=== PATIENT | female | born 1990 | race Caucasian/White ===

== ENCOUNTER 2016-07-22 17:45 | Emergency (ER) | payer MEDICAID ==
[~2016-07-22] VITALS: Ht 170.2 cm; Wt 64.0 kg
[~2016-07-22 17:45] MED LIST: CETI10TA17; DOXY100C42 PO; FAMO-119 PO; INDO50CA; NABU500T; NORE0.357; NORG1TAB88; PHEN-640 PO; PHEN15CA67; PRD20T PO; RANI150T15 PO; TIZA2TAB3; TOPI100T11; TOPI25TA10
--- OUTSIDE RECORDS SUMMARY | 2016-07-22 17:52 | XMS REPORT | Continuity of Care Document ---
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 Name Role Phone FAHEEM WASHINGTON DO PCP Insurance Providers Payer Name Policy Number Subscriber Name Relationship [facility] Amerigrp [id number] Shayna Winchester 18 Self / Same As Patient Advance Directives Directive Response Recorded Date/Time Advance Directives No 05/03/16 11:01pm Resuscitation Status Full Code 05/03/16 11:01pm Chief Complaint and Reason for Visit Chief Complaint Abdominal/GI Problems Reason for Visit Urinary tract infection Problems Active Problems Medical Problem Onset Date Status Laceration Unknown Acute Urinary tract infection Unknown Acute Urticaria Unknown Acute Medications Current Home Medications Medication Dose Units Route Directions Days/Qty Instructions Start Date Topiramate 100 Mg 60 05/03/16 Norethindrone 0.35 Mg 28 05/03/16 Cetirizine Hcl 10 Mg 30 05/03/16 Nabumetone 500 Mg 60 05/03/16 Norgestimate-Ethinyl Estradiol 1 Each 28 05/03/16 Indomethacin 50 Mg 270 05/03/16 Doxycycline Monohydrate 100 Mg 100 Mg Oral Twice A Day 20 05/03/16 Phenazopyridine Hcl 200 Mg 1 Tab Oral Three Times A Day for Bladder Discomfort 15 05/03/16 Past Home Medications Medication Directions Ordered Status Phentermine Hcl 15 Mg Capsule, 04/13/15 Discontinued Tizanidine Hcl 2 Mg Tablet, 04/13/15 Discontinued Ranitidine Hcl 150 Mg Tablet, 150 Mg Oral 04/13/15 Discontinued Famotidine 20 Mg Tablet, 20 Mg Oral Twice A Day 04/13/15 Discontinued Prednisone 20 Mg Tab, 20 Mg Oral Twice A Day 04/13/15 Discontinued Topiramate 25 Mg Tablet, 09/03/15 Discontinued Social History Social History Problem Response Recorded Date/Time Alcohol Use Occasionally Uses 09/03/2015 8:45pm Recreational Drug Use No 09/03/2015 8:45pm Recent Foreign Travel No 05/03/2016 11:01pm Recent Infectious Disease Exposure No 05/03/2016 11:01pm Hospitalization with Isolation Denies 05/03/2016 11:01pm Smoking Status Current Everyday Smoker 05/03/2016 11:01pm Type Used Electronic/Vapor 05/03/2016 11:01pm Recent Hopitalizations No 05/03/2016 11:01pm Hospitalization with Isolation Denies 05/03/2016 11:01pm Query Response Start Date Stop Date Smoking Status Current Everyday Smoker Hospital Discharge Instructions No hospital discharge instructions. Plan of Care Discharge Date 05/03/16 11:39pm Disposition 01 HOME, SELF-CARE Condition at Discharge Stable Instructions/Education Provided Urinary Tract Infection in Women (ED) Prescriptions See Medication Section Referrals FAHEEM WASHINGTON DO - Primary Care Physician Additional Instructions/Education TYLENOL AND MOTRIN NEEDED FOR PAIN LOTS OF CLEAR LIQUIDS--NO COFFEE, POP OR TEA FOLLOW UP WITH YOUR DR IN 2-3 DAYS IF NO BETTER RETURN TO ER IF WORSE All discharge instructions reviewed with patient and/or family. Voiced understanding. Functional Status No functional status results. Allergies, Adverse Reactions, Alerts Allergen Type Severity Reaction Status Last Updated Penicillins ([id number]) Allergy Unknown Active 04/13/15 Cephalosporins ([id number]) Allergy Unknown Active 05/03/16 nitrofurantoin ([id number]) Allergy Unknown Active 04/13/15 fluconazole ([id number]) Allergy Unknown Active 04/13/15 Levofloxacin Allergy Unknown Active 04/13/15 strawberry ([id number]) Allergy Unknown Active 04/13/15 wheat ([id number]) Allergy Unknown Active 04/13/15 APIRCOTS Allergy Unknown Active 04/13/15 APPLES Allergy Unknown Active 04/13/15 IM IV STEROIDS Allergy Unknown Active 04/13/15 KIAW Allergy Unknown Active 04/13/15 PEACHES Allergy Unknown Active 04/13/15 TOOTHPASTE Allergy Unknown Active 04/13/15 Immunizations No immunization records. Vital Signs Acute Vital Signs Vital Response Date/Time Temperature (Fahrenheit) 98.8 degrees F (97.6 - 99.5) 05/03/2016 11:01pm Temperature (Calculated Celsius) 37.22728 degrees C (36.4 - 37.5) 05/03/2016 11:01pm Pulse Rate (adult) 91 bpm (60 - 90) 05/03/2016 11:01pm Respiratory Rate 18 bpm (12 - 24) 05/03/2016 11:01pm O2 Sat by Pulse Oximetry 97 % (88 - 100) 05/03/2016 11:01pm Blood Pressure 135/86 mm Hg 05/03/2016 11:01pm Blood Pressure Mean 102 mm Hg 05/03/2016 11:01pm Pain Numeric Pain Scale 6 05/03/2016 11:01pm Height (Feet) 5 feet 05/03/2016 11:01pm Height (Inches) 7 inches 05/03/2016 11:01pm Height (Calculated Centimeters) 170.727195 cm 05/03/2016 11:01pm Weight (Pounds) 135 pounds 05/03/2016 11:01pm Weight (Calculated Grams) 53558.818 gm 05/03/2016 11:01pm Weight (Calculated Kilograms) 61.354668 kilograms 05/03/2016 11:01pm Calculated BMI 24.27 05/03/2016 11:01pm Capillary Refill Capillary Refill Less Than 3 Seconds 05/03/2016 11:01pm Results Laboratory Results Test Name Result Units Flags Reference Collection Date/Time Result Date/ Time Comments Urine Color YELLOW 05/03/2016 11:05pm 05/03/2016 11:21pm Urine Clarity CLEAR 05/03/2016 11:05pm 05/03/2016 11:21pm Urine pH 6.5 5-9 05/03/2016 11:05pm 05/03/2016 11:21pm Urine Specific [place] 1.015 * 1.016-1.022 05/03/2016 11:05pm 2015 11:21pm Urine Protein NEGATIVE NEGATIVE 05/03/2016 11:05pm 05/03/2016 11: 21pm Urine Glucose (UA) NEGATIVE NEGATIVE 05/03/2016 11:05pm 05/03/2016 11 :21pm Urine RBC (Auto) NEGATIVE NEGATIVE 05/03/2016 11:05pm 05/03/2016 11: 21pm Urine Ketones NEGATIVE NEGATIVE 05/03/2016 11:05pm 05/03/2016 11: 21pm Urine Nitrite NEGATIVE NEGATIVE 05/03/2016 11:05pm 05/03/2016 11: 21pm Urine Bilirubin NEGATIVE NEGATIVE 05/03/2016 11:05pm 05/03/2016 11: 21pm Urine Urobilinogen NORMAL MG/DL NORMAL 05/03/2016 11:05pm 05/03/2016 11 :21pm Urine Leukocyte Esterase 1+ * NEGATIVE 05/03/2016 11:05pm 05/03/2016 11 :21pm Urine RBC NONE /HPF 05/03/2016 11:05pm 05/03/2016 11:21pm Urine WBC 2-5 /HPF 05/03/2016 11:05pm 05/03/2016 11:21pm Urine Bacteria TRACE /HPF 05/03/2016 11:05pm 05/03/2016 11:21pm Urine Squamous Epithelial Cells 10-25 /HPF * 05/03/2016 11:05pm 2015 11:21pm Urine Crystals NONE /LPF 05/03/2016 11:05pm 05/03/2016 11:21pm Urine Casts NONE /LPF 05/03/2016 11:05pm 05/03/2016 11:21pm Urine Mucus NEGATIVE /LPF 05/03/2016 11:05pm 05/03/2016 11:21pm Urine Culture Indicated NO 05/03/2016 11:05pm 05/03/2016 11:21pm Procedures No known history of procedures. Encounters Encounter Location Arrival/Admit Date Discharge/Depart Date Attending Provider Departed Emergency Room [facility] 05/03/16 10:57pm 11:39pm HAYDEN READ DO Recent Diagnosis
--- NOTE | 2016-07-22 18:18 | ED GU-Female ---
General Chief Complaint: -Female Stated Complaint: 5 WKS PREG/VAG BLEEDING Nursing Triage Note: PT REPORTS LMP 5 WEEKS AND 1 DAY AGO. SHE STATES SHE HAD PINK BLOOD WHEN WIPING EARLIER TODAY. NO ABD CRAMPING Nursing Sepsis Screen: No Definite Risk Source: patient, spouse Exam Limitations: no limitations History of Present Illness Time seen by provider: 18:17 Initial Comments 25-year-old female patient presents to the emergency department with complaints of vaginal spotting (light pink with wiping) earlier today. Reports last menstrual period was 5 weeks and 1 day ago. Has not taken any test to confirm . Denies abdominal cramping, vomiting, dysuria, or hematuria. Has had urinary frequency and nausea for the last 2 weeks. Patient is scheduled to see Dr. Arce for initial appointment next week. Timing/Duration: this afternoon Severity/Quality: mild Location: vaginal Radiation: none Activities at Onset: none Prior Genitourinary Problems: none Sexual [place] History: less than 2 months ago, single partner Modifying Factors: Worsens With Urinating Allergies and Home Medications Allergies Coded Allergies: Cephalosporins (Verified Allergy, Unknown, 05/03/16) Penicillins (Verified Allergy, Unknown, 04/13/15) fluconazole (Verified Allergy, Unknown, 04/13/15) levofloxacin (Verified Allergy, Unknown, 04/13/15) nitrofurantoin (Verified Allergy, Unknown, 04/13/15) strawberry (Verified Allergy, Unknown, 04/13/15) wheat (Verified Allergy, Unknown, 04/13/15) Uncoded Allergies: APIRCOTS (Allergy, Unknown, 04/13/15) APPLES (Allergy, Unknown, 04/13/15) IM IV STEROIDS (Allergy, Unknown, 04/13/15) KIAW (Allergy, Unknown, 04/13/15) PEACHES (Allergy, Unknown, 04/13/15) TOOTHPASTE (Allergy, Unknown, 04/13/15) Home Medications Cetirizine HCl 10 Mg Tablet #30 (Reported) Doxycycline Monohydrate 100 Mg Capsule #20 100 MG PO BID Prescribed by: HAYDEN READ on 05/03/16 8506 Indomethacin 50 Mg Capsule #270 (Reported) Nabumetone 500 Mg Tablet #60 (Reported) Norethindrone 0.35 Mg Tablet #28 (Reported) Norgestimate-Ethinyl Estradiol 1 Each Tablet #28 (Reported) Phenazopyridine HCl 200 Mg Tablet #15 1 TAB PO TID Prescribed by: HAYDEN READ on 05/03/16 2331 Topiramate 100 Mg Tablet #60 (Reported) Constitutional: No chills, No fever, No malaise Respiratory: no symptoms reported Cardiovascular: no symptoms reported Gastrointestinal: No abdominal pain, No constipation, No diarrhea, No nausea, No vomiting Genitourinary: see HPI : Yes Musculoskeletal: no symptoms reported Skin: no symptoms reported Psychiatric/Neurological: No Symptoms Reported All Other Systemes Reviewed Negative Unless Noted: Yes (Negative excepted noted.) Past Pgpinap-Lujnxg-Mzgzig Hx Patient Social History Alcohol Use: Denies Use Recreational Drug Use: No Smoking Status: Former Smoker Type Used: Cigarettes, Electronic/Vapor Recent Foreign Travel: No Contact w/Someone Who Travel: No Recent Infectious Disease Expo: No Recent Hopitalizations: No Physical Abuse Screen: No Sexual Abuse: No Immunizations Up To Date Tetanus Booster (TDap): Unknown Seasonal Allergies Seasonal Allergies: No Surgeries HX Surgeries: Yes Surgeries: Section, Gallbladder, Orthopedic Respiratory Hx Respiratory Disorders: No Cardiovascular Hx Cardiac Disorders: No Neurological Hx Neurological Disorders: Yes Neurological Disorders: Headaches /Migraines 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 System Female 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 Disorders: Denies Genitourinary Hx Genitourinary Disorders: No Gastrointestinal Hx Gastrointestinal Disorders: No Musculoskeletal Hx Musculoskeletal Disorders: Yes Musculoskeletal Disorders: Back Injury, Chronic Back Pain, Fractures Endocrine Hx Endocrine Disorders: No HEENT HX ENT Disorders: Yes (RIGHT ELIAN-HYPERPLASIA OF FACE/HEAD; LASER SURGERY TO TONGUE) Cancer Hx Cancer: No Psychosocial Hx Psychiatric Problems: No Integumentary HX Skin/Integumentary Disorder: No Blood Transfusions Hx Blood Disorders: No Reviewed Nursing Assessment Reviewed/Agree w Nursing PMH: Yes Family Medical History Significant Family History: No Pertinent Family Hx Physical Exam Vital Signs Capillary Refill : Less Than 3 Seconds General Appearance: WD/WN no apparent distress HEENT: PERRL/EOMI pharynx normal Neck: supple normal inspection Cardiovascular: normal peripheral pulses regular rate, rhythm no edema no murmur Respiratory: lungs clear normal breath sounds no respiratory distress Gastrointestinal: normal bowel sounds non tender softNo distended Pelvic: other (deferred by patient. 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 Gestational sac diameter measures about 1.16 cm which corresponds to an estimated gestational age of 5 weeks 6 days. Yolk sac is demonstrated within the gestational sac. No pole however at this time is demonstrated. There is a 4 mm subchorionic hemorrhage posterior to the gestational sac. There is a 1.4 cm probable benign cyst in the right ovary. The left ovary is not well demonstrated. No free fluid is seen. IMPRESSION: There is an intrauterine gestation demonstrated with gestational sac dating of 5 weeks 6 days. Yolk sac is demonstrated; however, no pole is demonstrated. Viability is indeterminate but doubtful. There is also a 4 mm subchorionic hemorrhage present. Short-term follow-up study and correlation with quantitative beta-hCG levels is recommended. Dictated by: Dictated on workstation # [id number] Reviewed: Reviewed by Me (radiology report reviewed by me.) Departure Communication Progress Notes all laboratory and diagnostic findings studies discussed with the patient. Plan for discharge to home. Patient instructed to follow-up with her oven builder as previously scheduled. All return precautions were discussed with the patient as described in the discharge instructions of this report. Patient voices understanding and agrees with the treatment plan. Patient case discussed with Dr. Gonzalez, he agrees with the plan of care. Impression Impression: Primary Impression: Threatened miscarriage in early Disposition: 01 HOME, SELF-CARE Condition: Improved Departure-Patient Inst. Decision time for Depature: 20:09 Referrals: ZEINAB ARCE ADAM S DO (PCP/Family) Primary Care Physician Patient Instructions: Threatened Miscarriage (DC) Add. Discharge Instructions: All discharge instructions reviewed with patient and/or family. Voiced understanding. Tylenol mcru-vax-yhawqns as directed for pain if needed. No intercourse, use of tampons, or strenuous activity until released by Dr. Arce. Follow-up with Dr. Arce as previously scheduled next week for repeat labs and possible need for outpatient repeat ultrasound. Return to the emergency department for worsened pain, fever, vomiting, inability urinate, vaginal bleeding with greater than 2 pads per hour for greater than 2 hours, or any other concerns. Work/School Note: Work Release Form Date Seen in the Emergency Department: Jul 22, 2016 Return to Work: Jul 24, 2016 Other Restrictions Listed Below: no strenuous activity until released by physician. LULU MANCIA Jul 22, 2016 18:17 Urine Leukocyte Esterase NEGATIVE NEGATIVE Urine Mucus NEGATIVE /LPF Urine Nitrite NEGATIVE NEGATIVE Urine Protein NEGATIVE NEGATIVE Urine RBC NONE /HPF Urine RBC (Auto) NEGATIVE NEGATIVE Urine Specific [place] 1.010 L 1.016-1.022 Urine Squamous Epithelial Cells 5-10 /HPF Urine Urobilinogen NORMAL NORMAL MG/DL Urine WBC RARE /HPF Urine pH 7 5-9 White Blood Count 9.4 4.3-11.0 10^3/uL My Orders Orders-LULU MANCIA Cbc With Automated Diff (07/22/16 17:58) Hcg,Quantitative (07/22/16 17:58) Ua Culture If Indicated (07/22/16 17:58) Us Ob Transvaginal [id number] (07/22/16 17:58) Urine Bedside (07/22/16 18:18) Vital Signs/I&O Vital Sign - Last 12Hours 07/22/16 18:02 Temp 98.1 Pulse 74 Resp 16 B/P 124/76 Pulse Ox 98 O2 Delivery Room Air Blood Pressure Mean: 92 Diagnostic Imaging Diagonstic Imaging: Ultrasound Plain Films/CT/US/NM/MRI: pelvis Comments FINDINGS: There is an intrauterine gestational sac demonstrated. Gestational sac diameter measures about 1.16 cm which corresponds to an estimated gestational age of 5 weeks 6 days. Yolk sac is demonstrated within the gestational sac. No pole however at this time is demonstrated. There is a 4 mm subchorionic hemorrhage posterior to the gestational sac. There is a 1.4 cm probable benign cyst in the right ovary. The left ovary is not well demonstrated. No free fluid is seen. IMPRESSION: There is an intrauterine gestation demonstrated with gestational sac dating of 5 weeks 6 days. Yolk sac is demonstrated; however, no pole is demonstrated. Viability is indeterminate but doubtful. There is also a 4 mm subchorionic hemorrhage present. Short-term follow-up study and correlation with quantitative beta-hCG levels is recommended. Dictated by: Dictated on workstation # [id number] Reviewed: Reviewed by Me (radiology report reviewed by me.) Departure Impression Impression: Primary Impression: Threatened miscarriage in early Disposition: 01 HOME, SELF-CARE Condition: Improved Departure-Patient Inst. Decision time for Depature: 20:09 Referrals: ZEINAB ARCE ADAM S DO (PCP/Family) Primary Care Physician Patient Instructions: Threatened Miscarriage (DC) Add. Discharge Instructions: All discharge instructions reviewed with patient and/or family. Voiced understanding. Tylenol [id number] as directed for pain if needed. No intercourse, use of tampons, or strenuous activity until released by Dr. Arce. Follow-up with Dr. Arce as previously scheduled next week for repeat labs and possible need for outpatient repeat ultrasound. Return to the emergency department for worsened pain, fever, vomiting, inability urinate, vaginal bleeding with greater than 2 pads per hour for greater than 2 hours, or any other concerns. Work/School Note: Work Release Form Date Seen in the Emergency Department: Jul 22, 2016 Return to Work: Jul 24, 2016 Other Restrictions Listed Below: no strenuous activity until released by physician. LULU MANCIA Jul 22, 2016 18:17
[2016-07-22 18:33] LABS: BASOPHILS % (AUTO) 0 % (0-10); BILIRUBIN,URINE NEGATIVE (NEGATIVE); EOSINOPHILS # (AUTO) 0.2 10^3/uL (0.0-0.3); EOSINOPHILS % (AUTO) 2 % (0-10); KETONES,URINE NEGATIVE (NEGATIVE); LEUKOCYTE ESTERASE ,URINE NEGATIVE (NEGATIVE); LYMPHOCYTES # (AUTO) 2.4 X 10^3 (1.0-4.0); LYMPHOCYTES % (AUTO) 25 % (12-44); MEAN CORPUSCULAR HEMOGLOBIN 32 PG (25-34); MEAN CORPUSCULAR HGB CONC 34 G/DL (32-36); MEAN CORPUSCULAR VOLUME 94 FL (80-99); MEAN PLATELET VOLUME 10.9 FL (7.4-10.4); MONOCYTES # (AUTO) 0.7 X 10^3 (0.0-1.0); MONOCYTES % (AUTO) 7 % (0-12); NEUTROPHILS # (AUTO) 6.2 X 10^3 (1.8-7.8); NEUTROPHILS % (AUTO) 66 % (42-75); NITRITE,URINE NEGATIVE (NEGATIVE); PH,URINE 7 (5-9); PLATELET COUNT 285 10^3/uL (130-400); PROTEIN,URINE NEGATIVE (NEGATIVE); RED BLOOD COUNT 4.67 10^6/uL (4.35-5.85); RED CELL DISTRIBUTION WIDTH 11.9 % (10.0-14.5); UROBILINOGEN,URINE NORMAL (NORMAL); WHITE BLOOD COUNT 9.4 10^3/uL (4.3-11.0)
[2016-07-22 18:39] LABS: WBC,URINE RARE /HPF
--- NOTE | 2016-07-22 19:49 | Diagnostic Imaging Report ---
INDICATION: Vaginal bleeding. COMPARISON: None. PROCEDURE: Grayscale endovaginal ultrasound is performed with color and duplex Doppler. FINDINGS: There is an intrauterine gestational sac demonstrated. Gestational sac diameter measures about 1.16 cm which corresponds to an estimated gestational age of 5 weeks 6 days. Yolk sac is demonstrated within the gestational sac. No pole however at this time is demonstrated. There is a 4 mm subchorionic hemorrhage posterior to the gestational sac. There is a 1.4 cm probable benign cyst in the right ovary. The left ovary is not well demonstrated. No free fluid is seen. IMPRESSION: There is an intrauterine gestation demonstrated with gestational sac dating of 5 weeks 6 days. Yolk sac is demonstrated; however, no pole is demonstrated. Viability is indeterminate but doubtful. There is also a 4 mm subchorionic hemorrhage present. Short-term follow-up study and correlation with quantitative beta-hCG levels is recommended. Dictated by: Dictated on workstation # [id number]
[2016-07-22 20:27] VITALS: BP 115/74
== END 2016-07-22 20:27 | disposition home or self-care (01) ==
LOC: EDUNIT# 17:45 → ER 17:46
DX: O20.0 Threatened abortion (principal); Z3A.01 Less than 8 weeks gestation of pregnancy
CPT/HCPCS: 36415; 76817; 81000; 84702; 84703; 85025; 99282

== ENCOUNTER → 2016-07-29 | Outpatient (CLI) | payer MEDICAID ==
[~2016-07-29] MED LIST changes: +HYDR-3812 PO
--- OUTSIDE RECORDS SUMMARY | 2016-07-29 13:00 | XMS REPORT | Continuity of Care Document ---
Author Author [facility] Organization [facility] Address Unknown Phone Unavailable Care Team Providers Care Sales Marketing Name Role Phone FAHEEM WASHINGTON DO PCP Insurance Providers Payer Name Policy Number Subscriber Name Relationship [facility] [employer] [id number] Shayna Winchester 18 Self / Same As [...] Type Severity Reaction Status Last Updated Penicillins ([id number]) Allergy Unknown Active 04/13/15 Cephalosporins ([id number]) Allergy Unknown Active 05/03/16 nitrofurantoin ([id number]) Allergy Unknown Active 04/13/15 fluconazole ([id number]) Allergy Unknown Active 04/13/15 Levofloxacin Allergy Unknown Active 04/13/15 strawberry ([id number]) Allergy Unknown Active 04/13/15 wheat (S925273148) Allergy Unknown Active 04/13/15 APIRCOTS Allergy Unknown Active 04/13/15 APPLES Allergy Unknown Active 04/13/15 IM IV STEROIDS Allergy Unknown Active 04/13/15 KIAW Allergy Unknown Active 04/13/15 PEACHES Allergy Unknown Active 04/13/15 TOOTHPASTE Allergy Unknown Active 04/13/15 Immunizations No immunization records. Vital Signs Acute Vital Signs Vital Response Date/Time Temperature (Fahrenheit) 98.8 degrees F (97.6 - 99.5) 05/03/2016 11:01pm Temperature (Calculated Celsius) 37.75684 degrees C (36.4 - 37.5) 05/03/2016 11:01pm [...] 7 inches 05/03/2016 11:01pm Height (Calculated Centimeters) 170.449150 cm 05/03/2016 11:01pm Weight (Pounds) 135 pounds 05/03/2016 11:01pm Weight (Calculated Grams) 14590.818 gm 05/03/2016 11:01pm Weight (Calculated Kilograms) 61.453063 kilograms 05/03/2016 11:01pm Calculated BMI 24.27 05/03/2016 11:01pm Capillary Refill Capillary Refill Less Than 3 Seconds 05/03/2016 11:01pm Results Laboratory Results Test Name Result Units Flags Reference Collection Date/Time Result Date/ Time Comments Urine Color YELLOW 05/03/2016 11:05pm 05/03/2016 11:21pm Urine Clarity CLEAR 05/03/2016 11:05pm 05/03/2016 11:21pm Urine pH 6.5 5-9 05/03/2016 11:05pm 05/03/2016 11:21pm Urine Specific [place] 1.015 * 1.016-1.022 05/03/2016 11:05pm 2015 11:21pm [...] Date Attending Provider Departed Emergency Room [facility] 05/03/16 10:57pm 11:39pm HAYDEN READ DO Recent Diagnosis
--- NOTE | 2016-07-29 13:50 | Diagnostic Imaging Report ---
INDICATION: Vaginal bleeding, . COMPARISON: 07/22/2016. DISCUSSION: Transabdominal sonographic evaluation of the pelvis was performed. Single live intrauterine at 6 weeks 2 days by today's sonographic measurements. EDC by today's ultrasound is 03/22/2017. [place]-rump length measures 0.47 cm. heart rate measures 114 beats per minute, which is considered bradycardic though not uncommonly seen at this early gestational age. No abnormal adnexal mass or fluid. IMPRESSION: 1. Single live intrauterine at 6 weeks 2 days by sonographic measurements. Dictated by: Dictated on workstation # [id number]
== END ==
LOC: RAD 12:57
PROVIDERS: ATTEND Obstetrics & Gynecology
DX: O20.9 Hemorrhage in early pregnancy, unspecified (principal); Z3A.01 Less than 8 weeks gestation of pregnancy
CPT/HCPCS: 76801

== ENCOUNTER → 2016-09-02 | Outpatient (CLI) | payer MEDICAID ==
--- OUTSIDE RECORDS SUMMARY | 2016-09-02 18:51 | XMS REPORT | Continuity of Care Document ---
Author Author [facility] Organization [facility] Address Unknown Phone Unavailable Care Team Providers Care Vp Rheumatology Name Role Phone FAHEEM WASHINGTON DO PCP Insurance Providers Payer Name Policy Number Subscriber Name Relationship [facility] [employer] [id number] Shayna Winchester 18 Self / Same As [...] Type Severity Reaction Status Last Updated Penicillins ([id number]) Allergy Unknown Active 04/13/15 Cephalosporins ([id number]) Allergy Unknown Active 05/03/16 nitrofurantoin (R619609056) Allergy Unknown Active 04/13/15 fluconazole (F661065986) Allergy Unknown Active 04/13/15 Levofloxacin Allergy Unknown Active 04/13/15 strawberry (D452077487) Allergy Unknown Active 04/13/15 wheat (V006458226) Allergy Unknown Active 04/13/15 APIRCOTS Allergy Unknown Active 04/13/15 APPLES Allergy Unknown Active 04/13/15 IM IV STEROIDS Allergy Unknown Active 04/13/15 KIAW Allergy Unknown Active 04/13/15 PEACHES Allergy Unknown Active 04/13/15 TOOTHPASTE Allergy Unknown Active 04/13/15 Immunizations No immunization records. Vital Signs Acute Vital Signs Vital Response Date/Time Temperature (Fahrenheit) 98.8 degrees F (97.6 - 99.5) 05/03/2016 11:01pm Temperature (Calculated Celsius) 37.58580 degrees C (36.4 - 37.5) 05/03/2016 11:01pm [...] 7 inches 05/03/2016 11:01pm Height (Calculated Centimeters) 170.516726 cm 05/03/2016 11:01pm Weight (Pounds) 135 pounds 05/03/2016 11:01pm Weight (Calculated Grams) 25565.818 gm 05/03/2016 11:01pm Weight (Calculated Kilograms) 61.628064 kilograms 05/03/2016 11:01pm Calculated BMI 24.27 05/03/2016 11:01pm Capillary Refill Capillary Refill Less Than 3 Seconds 05/03/2016 11:01pm Results Laboratory Results Test Name Result Units Flags Reference Collection Date/Time Result Date/ Time Comments Urine Color YELLOW 05/03/2016 11:05pm 05/03/2016 11:21pm Urine Clarity CLEAR 05/03/2016 11:05pm 05/03/2016 11:21pm Urine pH 6.5 5-9 05/03/2016 11:05pm 05/03/2016 11:21pm Urine Specific [place] 1.015 * 1.016-1.022 05/03/2016 11:05pm 2015 11:21pm [...] Date Attending Provider Departed Emergency Room [facility] 05/03/16 10:57pm 11:39pm HAYDEN READ DO Recent Diagnosis
[2016-09-02 19:04] LABS: MEAN PLATELET VOLUME 10.1 FL (7.4-10.4); RED BLOOD COUNT 4.24 10^6/uL (4.35-5.85); RED CELL DISTRIBUTION WIDTH 11.7 % (10.0-14.5); WHITE BLOOD COUNT 8.8 10^3/uL (4.3-11.0)
== END ==
LOC: LAB 18:46
PROVIDERS: ATTEND Nurse Practitioner Family
DX: R05 Cough (principal)
CPT/HCPCS: 36415; 85027

== ENCOUNTER 2016-10-21 08:51 | Emergency (ER) | payer MEDICAID ==
[~2016-10-21] VITALS: Ht 170.2 cm; Wt 68.0 kg
[~2016-10-21 08:51] MED LIST changes: -HYDR-3812 PO
--- NOTE | 2016-10-21 09:52 | ED Fall/Injury ---
General Chief Complaint: Hip/Pelvic Problems Stated Complaint: RIGHT HIP/KNEE/ANKLE INJURY Nursing Triage Note: Pt claims she fell inside exam room at the Dr. Arce's office. C/O right pelvic discomfort and right ankle pain. No bruising/swelling noted. Pt is 19 weeks . Source: patient Exam Limitations: no limitations History of Present Illness Time seen by provider: 09:30 Initial Comments Here with report of right hip, ankle and knee pain that she noted this morning but believes is related to a fall that she had yesterday. She was seeing her OB doctor yesterday when she states that she slipped off the steps because she only got half her foot on when she was getting off the table. She reports rolling her ankle medially and falling to the floor. She is not sure exactly what she did and how she hit but thinks she may have landed on her right hip. She was able to walk and had no pain yesterday. This morning she noted the pain to the 3 joint areas. Denies other injury. She is approximately 19 weeks . Occurred: this morning, yesterday Severity: mild Injuries/Pain Location: pelvis, lower extremity Context: slipped Loss of Consciousness: no loss of consciousness Associated Symptoms (Fall): No Muscle Spasms, No Neck Pain, No Shortness of Air , No Trouble Walking Allergies and Home Medications Allergies Coded Allergies: Cephalosporins (Verified Allergy, Unknown, 05/03/16) Penicillins (Verified Allergy, Unknown, 04/13/15) fluconazole (Verified Allergy, Unknown, 04/13/15) levofloxacin (Verified Allergy, Unknown, 04/13/15) nitrofurantoin (Verified Allergy, Unknown, 04/13/15) strawberry (Verified Allergy, Unknown, 04/13/15) wheat (Verified Allergy, Unknown, 04/13/15) Uncoded Allergies: APIRCOTS (Allergy, Unknown, 04/13/15) APPLES (Allergy, Unknown, 04/13/15) IM IV STEROIDS (Allergy, Unknown, 04/13/15) KIAW (Allergy, Unknown, 04/13/15) PEACHES (Allergy, Unknown, 04/13/15) TOOTHPASTE (Allergy, Unknown, 04/13/15) Home Medications Cetirizine HCl 10 Mg Tablet, #30 (Reported) Doxycycline Monohydrate 100 Mg Capsule, 100 MG PO BID, #20 Prescribed by: HAYDEN READ on 05/03/16 2331 Indomethacin 50 Mg Capsule, #270 (Reported) Nabumetone 500 Mg Tablet, #60 (Reported) Norethindrone 0.35 Mg Tablet, #28 (Reported) Norgestimate-Ethinyl Estradiol 1 Each Tablet, #28 (Reported) Phenazopyridine HCl 200 Mg Tablet, 1 TAB PO TID, #15 Prescribed by: HAYDEN READ on 05/03/16 2331 Topiramate 100 Mg Tablet, #60 (Reported) Constitutional: see HPI Respiratory: no symptoms reported Cardiovascular: no symptoms reported Genitourinary: no symptoms reported Musculoskeletal: see HPI, joint pain, muscle pain, No muscle weakness Skin: no symptoms reported Past Peuyjsy-Gvrapd-Pkjtoz Hx Patient Social History Alcohol Use: Denies Use Recreational Drug Use: No Smoking Status: Never a Smoker Type Used: Cigarettes, Electronic/Vapor Recent Foreign Travel: No Contact w/Someone Who Travel: No Recent Infectious Disease Expo: No Recent Hopitalizations: No Immunizations Up To Date Tetanus Booster (TDap): Unknown Seasonal Allergies Seasonal Allergies: No Surgeries HX Surgeries: Yes Surgeries: Section, Gallbladder, Orthopedic Respiratory Hx Respiratory Disorders: No Cardiovascular Hx Cardiac Disorders: No Neurological Hx Neurological Disorders: Yes Neurological Disorders: Headaches /Migraines 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 System : Yes Female 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 Disorders: Denies Genitourinary Hx Genitourinary Disorders: No Gastrointestinal Hx Gastrointestinal Disorders: No Musculoskeletal Hx Musculoskeletal Disorders: Yes Musculoskeletal Disorders: Back Injury, Chronic Back Pain, Fractures Endocrine Hx Endocrine Disorders: No HEENT HX ENT Disorders: Yes (RIGHT ELIAN-HYPERPLASIA OF FACE/HEAD; LASER SURGERY TO TONGUE) Cancer Hx Cancer: No Psychosocial Hx Psychiatric Problems: No Integumentary HX Skin/Integumentary Disorder: No Blood Transfusions Hx Blood Disorders: No Reviewed Nursing Assessment Reviewed/Agree w Nursing PMH: Yes Physical Exam Vital Signs Vital Sign - Last 12Hours 10/21/16 09:15 Temp 99.0 Pulse 70 Resp 16 B/P (MAP) 109/80 Pulse Ox 98 O2 Delivery Room Air Capillary Refill : Less Than 3 Seconds General Appearance: WD/WN, no apparent distress Neck: full range of motion, supple Cardiovascular: regular rate, rhythm, no murmur Respiratory: lungs clear, normal breath sounds Back: normal inspection, no CVA tenderness, no vertebral tenderness Extremities: other (mild tenderness to the posterior lateral aspect of the right hip and right groin. Right knee is overall nontender on range of motion. Negative drawer and negative laxity medial or lateral. Right ankle has mild swelling to the lateral aspect with normal range of motion.) Neurologic/Psychiatric: alert, normal mood/affect Skin: normal color, warm/dry, No ecchymosis Carlos Coma Score Best Eye Response: (4) Open Spontaneously Best Verbal Response: (5) Oriented Best Motor Response: (6) Obeys Commands Progress/Results/Core Measures Results/Orders My Orders Orders - MUNDO BEY MD Ankle, Right, 3 Views (10/21/16 09:35) David Bandage (10/21/16 10:09) Gel Ankle Brace (10/21/16 10:09) Vital Signs/I&O Vital Sign - Last 12Hours 10/21/16 09:15 Temp 99.0 Pulse 70 Resp 16 B/P (MAP) 109/80 Pulse Ox 98 O2 Delivery Room Air Blood Pressure Mean: 90 Progress Note : Progress Note Seen and evaluated. I did discuss the case with her OB doctor, Dr. Arce. We will get x-ray of the right ankle but forego other x-rays at this time. Patient did walk in here without difficulty. She is pain-free until this morning despite the fact that the fall occurred yesterday. Patient did ask about pain medicine. I did discuss this with Dr. Arce. I will prescribe hydrocodone 5 every 4-6 hours # 10 with his permission. 1008: No acute findings on x-ray. David wrap and gel splint applied. Discharged home with return precautions. Patient verbalize understanding instructions and agreement with plan. Diagnostic Imaging Diagonstic Imaging: Xray Plain Films/CT/US/NM/MRI: ankle Comments NAME: ARTHUR WINCHESTER MED REC#: [id number] PT STATUS: REG ER : 1990 PHYSICIAN: MUNDO BEY MD ADMIT DATE: 10/21/16/ER Draft Date of Exam:10/21/16 ANKLE, RIGHT, 3 VIEWS INDICATION: Fall with right ankle pain AP, oblique, and lateral views of the right ankle were obtained. No fracture or acute bony abnormality is seen. Joint spaces are unremarkable. IMPRESSION: Negative right ankle. Dictated on workstation # [id number] Dict: 10/21/16 1004 Trans: 10/21/16 1007 [facility] [id number] Interpreted by: CHEKO MISHRA MD Electronically signed by: Departure Impression Impression: Primary Impression: Right ankle sprain Qualified Codes: S93.401A - Sprain of unspecified ligament of right ankle, initial encounter Additional Impressions: Contusion of right hip Qualified Codes: S70.01XA - Contusion of right hip, initial encounter Right knee pain Qualified Codes: M25.561 - Pain in right knee Disposition: HOME, SELF-CARE Condition: Improved Departure-Patient Inst. Decision time for Depature: 09:56 Referrals: FAHEEM WASHINGTON DO (PCP/Family) Primary Care Physician Patient Instructions: Ankle Sprain (DC), Contusion (DC), Knee Pain (DC) Add. Discharge Instructions: All discharge instructions reviewed with patient and/or family. Voiced understanding. You may take Tylenol 1000 mg or the prescribed pain medicine every 6 hours. Do not take both at the same time and do not exceed 4000 mg of acetaminophen ( Tylenol) and a 24-hour period. Use ice packs to affected area 20 minutes per hour as needed for swelling. You may use David wrap to the affected area of the ankle as needed. Use splint as needed. Follow-up with your Dr. in a few days for recheck. Return for worse pain, fever, vomiting, weakness, breathing problems or other concerns as needed. Scripts Hydrocodone/Acetaminophen (Hydrocodon -Acetaminophen 5-325) 1 Each Tablet 1 EACH PO Q6H Y for PAIN, #10 TAB 0 Refills Prov: MUNDO BEY MD 10/21/16 MUNDO BEY MD Oct 21, 2016 09:52
--- NOTE | 2016-10-21 10:07 | Diagnostic Imaging Report ---
INDICATION: Fall with right ankle pain AP, oblique, and lateral views of the right ankle were obtained. No fracture or acute bony abnormality is seen. Joint spaces are unremarkable. IMPRESSION: Negative right ankle. Dictated by: Dictated on workstation # [id number]
[2016-10-21] MEDS ORDERED: HYDR-3812 PO (10:11)
[2016-10-21 10:18] VITALS: BP 110/80
--- OUTSIDE RECORDS SUMMARY | 2016-11-23 13:39 | XMS REPORT ---
Author Author DAQUAN HALL [facility] Address [address] [place] [address] Care Team Providers Care Gold Stamper Name Role Phone DAQUAN HALL Unavailable PROBLEMS Type Condition ICD9-CM Code FIX93-BI Code Onset Dates Condition Status SNOMED Code Problem Other general counseling and advice for contraceptive management V25.09 Active 587047017 Problem Surveillance of previously prescribed implantable subdermal contraceptive V25.43 Active 079902976 ALLERGIES Unknown Allergies SOCIAL HISTORY No smoking Hx information available PLAN OF CARE VITAL SIGNS MEDICATIONS Unknown Medications RESULTS No Results PROCEDURES No Known procedures IMMUNIZATIONS No Known Immunizations
--- OUTSIDE RECORDS SUMMARY | 2016-11-23 13:39 | XMS REPORT ---
Author Author DAQUAN HALL Organization [employer] Address Unknown Phone Unavailable Care Team Providers Care Refrigeration Supervisor Name Role Phone DAQUAN HALL CP Unavailable Allergies, Adverse Reactions, Alerts Substance Reaction Event Type Macrobid Info Not Available Drug Allergy Levaquin Info Not Available Drug Allergy Penicillins Info Not Available Non Drug Allergy Problems Problem Type Condition Code Onset Dates Condition Status Problem Surveillance of previously prescribed implantable subdermal contraceptive V25.43 Active Assessment Seasonal allergic rhinitis due to pollen J30.1 Active Problem Other general counseling and advice for contraceptive management V25.09 Active Medications Medication Code System Code Instructions Start Date End Date Status Dosage Vitamin D [facility] [address]-07 not defined Topamax [facility] [address]-69 not defined Sudafed [facility] [address]-47 30 MG Orally every 6 hrs 1 tablet as needed Excedrin PM [facility] [place] [address]-81 not defined Fluticasone Propionate [facility] [address]-79 50 MCG/ACT Nasally Once a day Mar 17, 2016 1 spray in each nostril Tizanidine HCl [facility] [address]-39 not defined Cetirizine HCl [facility] [place] [address]-70 10 mg Orally Once a day Mar 17, 2016 1 tablet Procedures Procedure Coding System Code Date Office Visit, Est Pt., Level 3 CPT-4 39833 Mar 17, 2016 Vital Signs Date/Time: Mar 17, 2016 Cardiac Monitoring Heart Rate 66 bpm Weight 142 lbs Height 66 in BMI 22.92 Index Blood Pressure Diastolic 82 mmHg Blood Pressure Systolic 112 mmHg Results No Known Results Summary Purpose [employer] Submission
--- OUTSIDE RECORDS SUMMARY | 2016-11-23 13:39 | XMS REPORT | Continuity of Care Document ---
Author Author [facility] Organization [facility] Address Unknown Phone Unavailable Allergies Active Description Code Type Severity Reaction Onset Reported/Identified Relationship to Patient Clinical Status Yes APIRCOTS APIRCOTS Unknown N/A 04/13/2015 Yes APPLES APPLES Unknown N/A 04/13/2015 Yes doxycycline [id number] Drug Allergy Unknown N/A 04/13/2015 Yes fluconazole [id number] Drug Allergy Unknown N/A 04/13/2015 Yes IM IV STEROIDS IM IV STEROIDS Unknown N/A 04/13/2015 Yes KIAW KIAW Unknown N/A 04/13/2015 Yes levofloxacin [id number] Drug Allergy Unknown N/A 04/13/2015 Yes nitrofurantoin [id number] Drug Allergy Unknown N/A 04/13/2015 Yes PEACHES PEACHES Unknown N/A 04/13/2015 Yes Penicillins [id number] Drug Allergy Unknown N/A 04/13/2015 Yes strawberry [id number] Drug Allergy Unknown N/A 04/13/2015 Yes TOOTHPASTE TOOTHPASTE Unknown N/A 04/13/2015 Yes wheat [id number] Drug Allergy Unknown N/A 04/13/2015 Yes Cephalosporins [id number] Drug Allergy Unknown N/A 05/03/2016 Medications Problems Date Dx Coded Attending Type Code Diagnosis Diagnosed By 04/13/2015 LULU KUO Ot 708.9 URTICARIA NOS 09/03/2015 DAVIS RHODES, KAELA Wadsworth Ot S61.012A LACERATION W/O FB OF LEFT THUMB W/ O MARY 09/03/2015 DAVIS RHODES, KAELA Wadsworth Ot W26.0XXA CONTACT WITH KNIFE, INITIAL ENCOUNTER 09/03/2015 DAVIS RHODES, KAELA Wadsworth Ot Y92.010 KITCHEN OF SINGLE-FAMILY (PRIVATE) HOUSE 09/03/2015 DAVIS RHODES, KAEAL Wadsworth Ot Y99.8 OTHER EXTERNAL CAUSE STATUS 10/09/2015 FAHEEM WASHINGTON DO Ot R10.11 11/20/2015 YOUSIF, JOCELIN L RESOURCE CONSERVATION MANAGER Ot R10.11 RIGHT UPPER QUADRANT PAIN 11/21/2015 YOUSIF, JOCELIN L RESOURCE CONSERVATION MANAGER Ot R10.11 RIGHT UPPER QUADRANT PAIN 11/28/2015 YOUSIF, JOCELIN L RESOURCE CONSERVATION MANAGER Ot R10.11 RIGHT UPPER QUADRANT PAIN 12/10/2015 YOUSIF, JOCELIN L RESOURCE CONSERVATION MANAGER Ot R10.11 RIGHT UPPER QUADRANT PAIN 05/03/2016 JACEK STRICKLAND HAYDEN K Ot F17.210 NICOTINE DEPENDENCE, CIGARETTES, UNCOMPL 05/03/2016 JACEK STRICKLAND, HAYDEN K Ot N39.0 URINARY TRACT INFECTION, SITE NOT SPECIF 05/03/2016 JACEK STRICKLAND HAYDEN K Ot R35.0 FREQUENCY OF MICTURITION 05/03/2016 JACEK STRICKLAND HAYDEN K Ot Z79.899 OTHER RETIREMENT (CURRENT) DRUG THERAPY 07/22/2016 LULU UKO Ot O20.0 THREATENED 07/22/2016 LULU KUO Ot Z3A.01 LESS THAN 8 WEEKS GESTATION OF 07/22/2016 FELIX STRICKLAND FAHEEM S Ot R10.11 RIGHT UPPER QUADRANT PAIN 07/22/2016 YOUSIF, JOCELIN L RESOURCE CONSERVATION MANAGER Ot R10.11 RIGHT UPPER QUADRANT PAIN 07/22/2016 YOUSIF, JOCELIN L RESOURCE CONSERVATION MANAGER Ot R10.11 RIGHT UPPER QUADRANT PAIN 07/24/2016 LULU KUO Ot O20.0 THREATENED 07/24/2016 LULU KUO Ot Z3A.01 LESS THAN 8 WEEKS GESTATION OF 07/30/2016 ALEXYS CORONA MD Ot O20.9 HEMORRHAGE IN EARLY , UNSPECIFI 07/30/2016 ALEXYS CORONA MD Ot Z3A.01 LESS THAN 8 WEEKS GESTATION OF 08/08/2016 ALEXYS CORONA MD Ot O20.9 HEMORRHAGE IN EARLY , UNSPECIFI 08/08/2016 ALEXYS CORONA MD Ot Z3A.01 LESS THAN 8 WEEKS GESTATION OF 09/12/2016 JAKI MOREJON [employer] SYSTEMS ENGINEER Ot R05 COUGH 10/21/2016 MUNDO BEY MD Ot M25.561 PAIN IN RIGHT KNEE 10/21/2016 MUNDO BEY MD Ot S70.01XA CONTUSION OF RIGHT HIP, INITIAL ENCOUNTE 10/21/2016 MUNDO BEY MD Ot S79.911A UNSPECIFIED INJURY OF RIGHT HIP, INITIAL 10/21/2016 MUNDO BEY MD Ot S93.401A SPRAIN OF UNSPECIFIED LIGAMENT OF RIGHT 10/21/2016 MUNDO BEY MD Ot W10.9XXA FALL (ON) (FROM) UNSPECIFIED STAIRS AND 10/21/2016 MUNDO BEY MD Ot Y92.[address] 10/21/2016 MUNDO BEY MD Ot Y99.8 OTHER EXTERNAL CAUSE STATUS 10/21/2016 MUNDO BEY MD Ot Z3A.19 19 WEEKS GESTATION OF 10/27/2016 FENECH DO ZEINAB S Ot Z34.82 ENCOUNTER FOR SUPRVSN OF NORMAL PREGNANC 10/27/2016 FENECH DO ZEINAB S Ot Z3A.19 19 WEEKS GESTATION OF 11/04/2016 DANNIELLEECH ZEINAB STRICKLAND S Ot Z34.82 ENCOUNTER FOR SUPRVSN OF NORMAL PREGNANC 11/04/2016 FENECH DO ZEINAB S Ot Z3A.19 19 WEEKS GESTATION OF Procedures Results Test Result Range Complete urinalysis with reflex to culture - 05/03/16 23:05 Urine color determination YELLOW NRG Urine clarity determination CLEAR NRG Urine pH measurement by test strip 6.5 5 -9 Specific gravity of urine by test strip 1.015 1.016-1.022 Urine protein assay by test strip, semi-quantitative NEGATIVE NEGATIVE Urine glucose detection by automated test strip NEGATIVE NEGATIVE Erythrocytes detection in urine sediment by light microscopy NEGATIVE NEGATIVE Urine ketones detection by automated test strip NEGATIVE NEGATIVE Urine nitrite detection by test strip NEGATIVE NEGATIVE Urine total bilirubin detection by test strip NEGATIVE NEGATIVE Urine urobilinogen measurement by automated test strip (mass/volume) NORMAL NORMAL Urine leukocyte esterase detection by dipstick 1+ NEGATIVE Automated urine sediment erythrocyte count by microscopy (number/high power field) NONE NRG Automated urine sediment leukocyte count by microscopy (number/high power field ) [HPF] NRG Bacteria detection in urine sediment by light microscopy TRACE NRG Squamous epithelial cells detection in urine sediment by light microscopy 10-25 NRG Crystals detection in urine sediment by light microscopy NONE NRG Casts detection in urine sediment by light microscopy NONE NRG Mucus detection in urine sediment by light microscopy NEGATIVE NRG Complete urinalysis with reflex to culture NO NRG Bacterial urine culture - 05/03/16 23:05 URINE CULTURE RESULTS <10,000/ML NRG Complete blood count (CBC) with automated white blood cell (WBC) differential - 07/22/16 18:20 Blood leukocytes automated count (number/volume) 9.4 10*3/ uL 4.3-11.0 Blood erythrocytes automated count (number/volume) 4.67 10*6 /uL 4.35-5.85 Venous blood hemoglobin measurement (mass/volume) 14.8 g/dL 11.5-16.0 Blood hematocrit (volume fraction) 44 % 35-52 Automated erythrocyte mean corpuscular volume 94 [foz_us] 80-99 Automated erythrocyte mean corpuscular hemoglobin (mass per erythrocyte) 32 pg 25-34 Automated erythrocyte mean corpuscular hemoglobin concentration measurement ( mass/volume) 34 g/dL 32-36 Automated erythrocyte distribution width ratio 11.9 % 10.0-14.5 Automated blood platelet count (count/volume) 285 10*3/uL 130-400 Automated blood platelet mean volume measurement 10.9 [foz_ us] 7.4-10.4 Automated blood neutrophils/100 leukocytes 66 % 42-75 Automated blood lymphocytes/100 leukocytes 25 % 12-44 Blood monocytes/100 leukocytes 7 % 0-12 Automated blood eosinophils/100 leukocytes 2 % 0-10 Automated blood basophils/100 leukocytes 0 % 0-10 Blood neutrophils automated count (number/volume) 6.2 10*3 1.8-7.8 Blood lymphocytes automated count (number/volume) 2.4 10*3 1.0-4.0 Blood monocytes automated count (number/volume) 0.7 10*3 0.0-1.0 Automated eosinophil count 0.2 10*3/uL 0.0-0.3 Automated blood basophil count (count/volume) 0.0 10*3/uL 0.0-0.1 Complete urinalysis with reflex to culture - 07/22/16 18:20 Urine color determination YELLOW NRG Urine clarity determination SLIGHTLY CLOUDY NRG Urine pH measurement by test strip 7 5- 9 Specific gravity of urine by test strip 1.010 1.016-1.022 Urine protein assay by test strip, semi-quantitative NEGATIVE NEGATIVE Urine glucose detection by automated test strip NEGATIVE NEGATIVE Erythrocytes detection in urine sediment by light microscopy NEGATIVE NEGATIVE Urine ketones detection by automated test strip NEGATIVE NEGATIVE Urine nitrite detection by test strip NEGATIVE NEGATIVE Urine total bilirubin detection by test strip NEGATIVE NEGATIVE Urine urobilinogen measurement by automated test strip (mass/volume) NORMAL NORMAL Urine leukocyte esterase detection by dipstick NEGATIVE NEGATIVE Automated urine sediment erythrocyte count by microscopy (number/high power field) NONE NRG Automated urine sediment leukocyte count by microscopy (number/high power field ) RARE NRG Bacteria detection in urine sediment by light microscopy NONE NRG Squamous epithelial cells detection in urine sediment by light microscopy 5-10 NRG Crystals detection in urine sediment by light microscopy NONE NRG Casts detection in urine sediment by light microscopy NONE NRG Mucus detection in urine sediment by light microscopy NEGATIVE NRG Complete urinalysis with reflex to culture NO NRG Serum or plasma choriogonadotropin measurement (units/volume) - 07/22/16 18:20 Serum or plasma choriogonadotropin measurement (units/volume) 24033 m[iU]/mL <5 Automated blood complete blood count (hemogram) panel - 09/02/16 18:58 Blood leukocytes automated count (number/volume) 8.8 10*3/ uL 4.3-11.0 Blood erythrocytes automated count (number/volume) 4.24 10*6 /uL 4.35-5.85 Venous blood hemoglobin measurement (mass/volume) 13.4 g/dL 11.5-16.0 Blood hematocrit (volume fraction) 39 % 35-52 Automated erythrocyte mean corpuscular volume 91 [foz_us] 80-99 Automated erythrocyte mean corpuscular hemoglobin (mass per erythrocyte) 32 pg 25-34 Automated erythrocyte mean corpuscular hemoglobin concentration measurement ( mass/volume) 35 g/dL 32-36 Automated erythrocyte distribution width ratio 11.7 % 10.0-14.5 Automated blood platelet count (count/volume) 243 10*3/uL 130-400 Automated blood platelet mean volume measurement 10.1 [foz_ us] 7.4-10.4 Encounters ACCT No. Visit Date/Time Discharge Status Pt. Type Provider Facility Loc./Unit Complaint [id number] 10/21/2016 08:54:00 2016 10:17:00 DIS Emergency SOTERO RHODES, MUNDO Birch [facility] ER RIGHT HIP/KNEE/ANKLE INJURY [id number] 07/22/2016 17:46:00 2016 20:27:00 DIS Emergency LULU KUO [facility] ER 5 WKS PREG/VAG BLEEDING [id number] 05/03/2016 22:57:00 2015 23:39:00 DIS Emergency HAYDEN READ DO [facility] ER STOMACH PAIN [id number] 09/03/2015 20:17:00 2015 21:05:00 DIS Emergency DAVIS RHODES, KAELA Wadsworth [facility] ER FINGER LAC [id number] 04/13/2015 11:17:00 2014 12:13:00 DIS Emergency LULU KUO [facility] ER POSS ALLERGIC REACTION [id number] 10/23/2016 11:48:00 ACT Outpatient ZEINAB VARGAS DO [facility] RAD SURVEY [id number] 09/02/2016 18:46:00 ACT Outpatient JAKI MOREJON APRN [facility] LAB COUGH [id number] 07/29/2016 12:57:00 ACT Outpatient CJ RHODES, ALEXYS Khoury [facility] RAD BLEEDING IN EARLY [id number] 11/26/2015 09:35:00 ACT Outpatient JOCELIN DODD RESOURCE CONSERVATION MANAGER [facility] CARD RUQ PAIN GB SONO NEG [id number] 11/19/2015 12:23:00 ACT Outpatient JOCELIN DODD RESOURCE CONSERVATION MANAGER [facility] CARD RUQ PAIN GB SONO NEG [id number] 09/28/2015 07:49:00 ACT Outpatient FAHEEM WASHINGTON DO S [facility] RAD ABDOMINAL PAIN RIGHT UPPER QUAD
--- OUTSIDE RECORDS SUMMARY | 2016-11-23 13:39 | XMS REPORT ---
Author Author CALLY KING Organization [employer] Address Unknown Phone Unavailable Care Team Providers Care [employer]oples[employer]ancials Consultant Name Role Phone CALLY KING CP Unavailable Allergies No Known Allergies Problems Problem Type Condition ICD-9 Code Onset Dates Condition Status Problem Surveillance of previously prescribed implantable subdermal contraceptive V25.43 Active Assessment Dental examination V72.2 Active Problem Other general counseling and advice for contraceptive management V25.09 Active Medications No Known Medications Procedures Procedure Coding System Code Date INTRAORL-PERIAPICAL 1 FILM 05070 CPT-4 D0220 Mar 01, 2015 INTRAORL-PERIAPICAL EA ADD FILM CPT-4 D0230 Mar 01, 2015 COMP ORAL EVALUATION - NEW/EST PT CPT-4 D0150 Mar 01, 2015 PROPHYLAXIS - ADULT CPT-4 D1110 Mar 01, 2015 BITEWINGS - FOUR FILMS CPT-4 D0274 Mar 01, 2015 Results No Known Results Summary Purpose eClinicalWorks Submission
== END 2016-10-21 10:17 | disposition home or self-care (01) ==
LOC: EDUNIT# 08:51 → ER 08:54
DX: S93.401A Sprain of unspecified ligament of right ankle, initial encounter (principal); S70.01XA Contusion of right hip, initial encounter; M25.561 Pain in right knee; Z3A.19 19 weeks gestation of pregnancy; Y92.531 Health care provider office as the place of occurrence of the external cause; W10.9XXA Fall (on) (from) unspecified stairs and steps, initial encounter; Y99.8 Other external cause status
CPT/HCPCS: 73610; 99283

== ENCOUNTER → 2016-10-23 | Outpatient (CLI) | payer MEDICAID ==
[~2016-10-23] MED LIST changes: +HYDR-3812 PO
--- NOTE | 2016-10-23 16:57 | Diagnostic Imaging Report ---
INDICATION: survey. OB sonography performed in a routine fashion with transabdominal views. Comparison made with 07/29/2016. FINDINGS: A single live intrauterine fetus is seen measuring 19 weeks 2 days by composite measurements, this demonstrates normal interval growth compared to the prior study. The fetus is in variable presentation. Placenta is posterior and grade 2 with no evidence of previa. heart rate is 134 beats per minute. Cervical length is 4.7 cm. survey shows mild prominence of renal pelves on both sides which measure about 4 mm. Spine was not well-seen. Remaining structures appear unremarkable. IMPRESSION: Single live intrauterine fetus measuring 19 weeks 2 days in size with normal interval growth since the prior study. There is mild prominence of the renal pelvis on both sides, consider followup as clinically warranted. spine was not well seen due to position, consider followup of this finding as well. Dictated by: Dictated on workstation # [id number]
== END ==
LOC: RAD 11:48
PROVIDERS: ATTEND Obstetrics & Gynecology
DX: Z34.82 Encounter for supervision of other normal pregnancy, second trimester (principal); Z3A.19 19 weeks gestation of pregnancy
CPT/HCPCS: 76805; 76817

== ENCOUNTER 2016-11-25 21:14 | Outpatient (CLI) | payer MEDICAID | END 2016-11-26 05:40 | disposition home or self-care (01) | LOC: SLEEP 21:14 | PROVIDERS: ATTEND Psychiatry & Neurology Neurology | DX: G47.33 Obstructive sleep apnea (adult) (pediatric) (principal) | CPT/HCPCS: 95810 ==

== ENCOUNTER 2016-12-06 19:46 | Outpatient (CLI) | payer MEDICAID ==
[~2016-12-06] VITALS: Ht 170.2 cm; Wt 73.3 kg
[2016-12-06 20:05] VITALS: BP 134/70
[2016-12-06] MEDS ORDERED: PNV11TAB5 PO (20:44)
[2016-12-06 20:45] VITALS: BP 120/68
--- NOTE | 2016-12-08 11:50 | Physician Query-Final Dx ---
LOIDA VIRGEN 12/08/16 1150: Clinic Account Progress/Dx Physician Query: Please give diagnosis Date of Service December 06, 2016 at 19:46 WHITLEY POE MD 12/09/16 0606: Clinic Account Progress/Dx DIAGNOSIS: Diagnosis False labor LOIDA VIRGEN December 08, 2016 11:50 WHITLEY POE MD December 09, 2016 06:06
== END 2016-12-06 21:05 ==
LOC: WSo 19:46 → LDRP 19:46 → WSo 21:05
PROVIDERS: ATTEND Obstetrics & Gynecology
DX: O47.02 False labor before 37 completed weeks of gestation, second trimester (principal); Z3A.25 25 weeks gestation of pregnancy
CPT/HCPCS: 99213

== ENCOUNTER → 2016-12-29 | Outpatient (CLI) | payer MEDICAID ==
[~2016-12-29] MED LIST changes: +PNV11TAB5 PO
--- NOTE | 2016-12-29 18:07 | Diagnostic Imaging Report ---
EXAM: US FOLLOW UP EA FETUS [id number] INDICATION: F/U RENALS COMPARISON: Obstetric ultrasound 10/23/2016. FINDINGS: Limited ultrasound of a single live intrauterine demonstrates a persistent prominence of the right renal pelvis measuring up to 4 mm. The left kidney appears normal on today's exam. The fetus is in cephalic presentation. JOSE 12.3. There is a posterior placenta. heart rate 135 beats per minute. Anatomic measurements for dates were not acquired. Images of the spine demonstrate normal morphology. IMPRESSION: Persistent prominence of the right renal collecting system measuring 4 mm. The left kidney is normal on today's exam. Dictated by: Dictated on workstation # [id number]
== END ==
LOC: RAD 16:44
PROVIDERS: ATTEND Obstetrics & Gynecology
DX: Z34.82 Encounter for supervision of other normal pregnancy, second trimester (principal)
CPT/HCPCS: 76816

== ENCOUNTER 2016-12-31 23:30 | Emergency (ER) | payer MEDICAID ==
[~2016-12-31] VITALS: Ht 170.2 cm; Wt 73.0 kg
[2017-01-01] MEDS ORDERED: predniSONE 20 MG TAB ONE (00:05)
[2017-01-01] MEDS ORDERED: FAMOTIDINE 20 MG (PEPCID) TABLET ONE (00:05)
[2017-01-01] MEDS ORDERED: FAMO-119 PO (00:06)
[2017-01-01] MEDS ORDERED: PRD20T PO (00:06)
--- NOTE | 2017-01-01 00:07 | ED Integumentary General ---
General Chief Complaint: Skin/Wound Problems Stated Complaint: RASH,29 WKS PREG Nursing Triage Note: PATIENT C/O RASH ON RIGHT ARM. PATIENT STATES THAT IT BEGAN ON THURSDAY AND HAS SINCE SPREAD AND THE BURNING HAS INCREASED. Source: patient, RN notes reviewed Exam Limitations: no limitations History of Present Illness Time seen by provider: 00:04 Initial Comments Patient presents c/ c/o rash RUE that started on Thursday and has slowly worsened. Describes it as burning. Doesn't remember anything similar to it. No known new exposures. Is 29 weeks . Did see her OB on 12/31 and he had no idea what the rash was. Apparently no recommendations. Been taking 1/2 doses of Benadryl which is only making her sleepy. Been on Pepcid for GI related symptoms but hasn't noted it to be helping. No known fever. Really no other complaints. Timing/Duration: getting worse, other (since Thursday) Severity: moderate Location: extremities (primarily RUE) Possible Cause: no cause identified Modifying Factors: improves with other (nothing) Associated Symptoms: change in skin texture, rash Allergies and Home Medications Allergies Coded Allergies: Cephalosporins (Verified Allergy, Unknown, 05/03/16) Penicillins (Verified Allergy, Unknown, 04/13/15) fluconazole (Verified Allergy, Unknown, 04/13/15) levofloxacin (Verified Allergy, Unknown, 04/13/15) nitrofurantoin (Verified Allergy, Unknown, 04/13/15) strawberry (Verified Allergy, Unknown, 04/13/15) wheat (Verified Allergy, Unknown, 04/13/15) Uncoded Allergies: APIRCOTS (Allergy, Unknown, 04/13/15) APPLES (Allergy, Unknown, 04/13/15) IM IV STEROIDS (Allergy, Unknown, 04/13/15) KIAW (Allergy, Unknown, 04/13/15) PEACHES (Allergy, Unknown, 04/13/15) TOOTHPASTE (Allergy, Unknown, 04/13/15) Home Medications Famotidine 20 Mg Tablet, 20 MG PO BID, #10 Ref 0 Prescribed by: ARVIN TOMPKINS on 01/01/17 0006 Fsf708/FA/Omega3/Dha/Fish Oil 1 Each Tab.chew, 1 EACH PO DAILY, (Reported) Prednisone 20 Mg Tab, 20 MG PO BID, #8 Ref 0 Prescribed by: ARVIN TOMPKINS on 01/01/17 0006 Constitutional: see HPI : Yes Expected Date of Delivery: Mar 16, 2017 Skin: see HPI, rash All Other Systems Reviewed Negative Unless Noted: Yes Past Ttbhbfv-Lezcvw-Meeafx Hx Patient Social History Alcohol Use: Denies Use Recreational Drug Use: No Smoking Status: Former Smoker Type Used: Electronic/Vapor Recent Foreign Travel: No Contact w/Someone Who Travel: No Recent Infectious Disease Expo: No Recent Hopitalizations: No Immunizations Up To Date Tetanus Booster (TDap): Unknown Seasonal Allergies Seasonal Allergies: No Surgeries HX Surgeries: Yes Surgeries: Section, Gallbladder, Orthopedic Respiratory Hx Respiratory Disorders: No Cardiovascular Hx Cardiac Disorders: No Neurological Hx Neurological Disorders: Yes Neurological Disorders: Headaches /Migraines 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 System : Yes Female 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 Disorders: Denies Genitourinary Hx Genitourinary Disorders: No Gastrointestinal Hx Gastrointestinal Disorders: No Musculoskeletal Hx Musculoskeletal Disorders: Yes Musculoskeletal Disorders: Arthritis, Back Injury, Chronic Back Pain, Fractures Endocrine Hx Endocrine Disorders: No HEENT HX ENT Disorders: Yes (RIGHT ELIAN-HYPERPLASIA OF FACE/HEAD; LASER SURGERY TO TONGUE) Cancer Hx Cancer: No Psychosocial Hx Psychiatric Problems: No Behavioral Health Disorders: Anxiety Integumentary HX Skin/Integumentary Disorder: No Blood Transfusions Hx Blood Disorders: No Physical Exam Vital Signs Vital Sign - Last 12Hours 12/31/16 23:41 Temp 97.1 Pulse 84 Resp 18 B/P (MAP) 118/77 Pulse Ox 98 O2 Delivery Room Air Capillary Refill : Less Than 3 Seconds General Appearance: WD/WN, no apparent distress Cardiovascular: regular rate, rhythm Respiratory: no respiratory distress Extremities: other (has apparent urticarial rash on RUE) Neurologic/Psychiatric: no motor/sensory deficits, alert, normal mood/affect, oriented x 3 Skin: warm/dry, rash Skin Problem Location: upper extremities (RUE) Skin Problem Character: blanching, erythema, urticarial Progress/Results/Core Measures Results/Orders My Orders Orders - ARVIN TOMPKINS DO Famotidine Tablet (Pepcid Tablet) (01/01/17 00:15) Prednisone Tablet (Deltasone Tablet) (01/01/17 00:15) Famotidine Tablet (Pepcid Tablet) (01/01/17 00:05) Prednisone Tablet (Deltasone Tablet) (01/01/17 00:05) Vital Signs/I&O Vital Sign - Last 12Hours 12/31/16 01/01/17 23:41 00:18 Temp 97.1 Pulse 84 84 Resp 18 18 B/P (MAP) 118/77 Pulse Ox 98 98 O2 Delivery Room Air Room Air Blood Pressure Mean: 91 Progress Note : Progress Note Briefly discussed case c/ Dr. Goldne (OB) and she had no problems c/ placing patient on a short course of prednisone as well as using Zyrtec rather that Benadryl. Also going to continue her on Pepcid 20 mg BID x 5 days as well. Departure Impression Impression: Primary Impression: Urticaria Disposition: HOME, SELF-CARE Condition: Stable Departure-Patient Inst. Decision time for Depature: 00:04 Referrals: FAHEEM WASHINGTON DO (PCP/Family) Primary Care Physician Patient Instructions: Marlin (DC) Add. Discharge Instructions: All discharge instructions reviewed with patient and/or family. Voiced understanding. WILL NEED TO STOP AND PHYSICAL THERAPY TEACHER SOME ZYRTEC. RECOMMEND 1 TAB EVERY 12 HOURS NEEDED FOR RASH/ITCHING. Scripts Prednisone (Prednisone) 20 Mg Tab 20 MG PO BID, #8 TAB 0 Refills Prov: ARVIN TOMPKINS DO 01/01/17 Famotidine (Pepcid) 20 Mg Tablet 20 MG PO BID, #10 TAB 0 Refills Prov: ARVIN TOMPKINS DO 01/01/17 ARVIN TOMPKINS DO Jan 01, 2017 00:07
[2017-01-01] MEDS ORDERED: predniSONE 20 MG TAB PO ONE (00:15)
[2017-01-01] MEDS ORDERED: FAMOTIDINE 20 MG (PEPCID) TABLET PO ONE (00:15)
[2017-01-01 00:18] VITALS: BP 118/77
== END 2017-01-01 00:18 | disposition home or self-care (01) ==
LOC: EDUNIT# 23:30 → ER 23:34
DX: O99.713 Diseases of the skin and subcutaneous tissue complicating pregnancy, third trimester (principal); L50.9 Urticaria, unspecified; Z3A.29 29 weeks gestation of pregnancy; Z87.891 Personal history of nicotine dependence
CPT/HCPCS: 99282

== ENCOUNTER 2017-01-20 22:44 | Outpatient (CLI) | payer MEDICAID ==
[~2017-01-20] VITALS: Ht 170.2 cm; Wt 75.5 kg
[2017-01-20 23:10] LABS: BILIRUBIN,URINE NEGATIVE (NEGATIVE); KETONES,URINE NEGATIVE (NEGATIVE); LEUKOCYTE ESTERASE ,URINE NEGATIVE (NEGATIVE); NITRITE,URINE NEGATIVE (NEGATIVE); PH,URINE 7 (5-9); PROTEIN,URINE NEGATIVE (NEGATIVE); UROBILINOGEN,URINE NORMAL (NORMAL)
[2017-01-20 23:26] VITALS: BP 109/69
--- NOTE | 2017-01-21 08:36 | Physician Query-Final Dx ---
LOIDA VIRGEN 01/21/17 0836: Clinic Account Progress/Dx Physician Query: Please give diagnosis Date of Service Jan 20, 2017 at 22:44 ZEINAB VARGAS DO 01/22/17 0650: Clinic Account Progress/Dx DIAGNOSIS: Diagnosis 34 week IUP Physiologic vaginal discharge LOIDA VIRGEN Jan 21, 2017 08:36 ZEINAB VARGAS DO Jan 22, 2017 06:50
== END 2017-01-20 23:35 | disposition home or self-care (01) ==
LOC: WSo 22:44 → LDRP 22:45 → WSo 23:35
PROVIDERS: ATTEND Obstetrics & Gynecology
DX: O26.893 Other specified pregnancy related conditions, third trimester (principal); O99.89 Other specified diseases and conditions complicating pregnancy, childbirth and the puerperium; N89.8 Other specified noninflammatory disorders of vagina; Z3A.34 34 weeks gestation of pregnancy
CPT/HCPCS: 81000; 99212

== ENCOUNTER 2017-03-03 19:26 | Outpatient (CLI) | payer MEDICAID ==
[~2017-03-03] VITALS: Ht 167.6 cm; Wt 78.5 kg
[2017-03-03 19:45] VITALS: BP 111/75
[2017-03-03] MEDS ORDERED: ZOLP5TAB PO ×2 (20:13)
[2017-03-03 20:18] VITALS: BP 118/63
[2017-03-03] MEDS ORDERED: PRD10T PO (21:10)
[2017-03-03] MEDS ORDERED: CYCL10TA9 PO (21:10)
--- NOTE | 2017-03-04 08:11 | Physician Query-Final Dx ---
LOIDA VIRGEN 03/04/17 0811: Clinic Account Progress/Dx Physician Query: Please give diagnosis Date of Service Mar 03, 2017 at 19:26 ZEINAB VARGAS DO 03/05/17 0715: Clinic Account Progress/Dx DIAGNOSIS: Diagnosis 38 week IUP Previous decreased movement LOIDA VIRGEN Mar 04, 2017 08:11 ZEINAB VARGAS DO Mar 05, 2017 07:15
[2017-03-04] MEDS ORDERED: OMEP20TA7 PO (15:00)
[2017-03-04] MEDS ORDERED: RANI150T15 PO (15:00)
== END 2017-03-03 20:25 | disposition home or self-care (01) ==
LOC: LDRP 19:26 → WSo 19:26
PROVIDERS: ATTEND Obstetrics & Gynecology
DX: O36.8130 Decreased fetal movements, third trimester, not applicable or unspecified (principal); O34.219 Maternal care for unspecified type scar from previous cesarean delivery; Z3A.39 39 weeks gestation of pregnancy
CPT/HCPCS: 99212

== ENCOUNTER 2017-03-03 20:30 | Emergency (ER) | payer MEDICAID ==
[~2017-03-03] VITALS: Ht 170.2 cm; Wt 78.5 kg
[~2017-03-03 20:30] MED LIST changes: +ZOLP5TAB PO
[2017-03-03] MEDS ORDERED: CYCL10TA9 PO (21:10)
[2017-03-03] MEDS ORDERED: PRD10T PO (21:10)
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
[2017-03-03] MEDS ORDERED: methylPREDNISolone 125 MG (Solu-MEDROL) VIAL IM ONE (21:15)
[2017-03-03] MEDS ORDERED: ORPHENADRINE 60 MG/2 ML (NORFLEX) AMP IM ONE (21:15)
[2017-03-03] MEDS ORDERED: diphenhydrAMINE 25 MG TAB (BENADRYL) PO ONE (21:15)
[2017-03-03 21:39] VITALS: BP 0/0
[2017-03-04] MEDS ORDERED: OMEP20TA7 PO (15:00)
[2017-03-04] MEDS ORDERED: RANI150T15 PO (15:00)
== END 2017-03-03 21:39 | disposition home or self-care (01) ==
LOC: EDUNIT# 20:30 → ER 20:31
DX: O99.89 Other specified diseases and conditions complicating pregnancy, childbirth and the puerperium (principal); M54.12 Radiculopathy, cervical region; O99.343 Other mental disorders complicating pregnancy, third trimester; F41.9 Anxiety disorder, unspecified; M19.90 Unspecified osteoarthritis, unspecified site; O99.353 Diseases of the nervous system complicating pregnancy, third trimester; G43.909 Migraine, unspecified, not intractable, without status migrainosus; O99.333 Smoking (tobacco) complicating pregnancy, third trimester; F17.210 Nicotine dependence, cigarettes, uncomplicated; Z3A.38 38 weeks gestation of pregnancy; Z87.59 Personal history of other complications of pregnancy, childbirth and the puerperium; Z87.81 Personal history of (healed) traumatic fracture
CPT/HCPCS: 96372; 99284

== ENCOUNTER 2017-03-04 14:41 | Outpatient (CLI) | payer MEDICAID ==
[~2017-03-04] VITALS: Ht 170.2 cm; Wt 78.5 kg
[~2017-03-04 14:41] MED LIST changes: +CYCL10TA9 PO; +PRD10T PO
[2017-03-04] MEDS ORDERED: OMEP20TA7 PO (15:00)
[2017-03-04] MEDS ORDERED: RANI150T15 PO (15:00)
--- NOTE | 2017-03-05 11:37 | Physician Query-Final Dx ---
YUMIKO EID 03/05/17 11:37am: Clinic Account Progress/Dx Physician Query: Please give diagnosis Date of Service Mar 04, 2017 at 14:41 ZEINAB VARGAS DO 03/12/17 11:56am: Clinic Account Progress/Dx DIAGNOSIS: Diagnosis 38 week IUP Uterine contractions Pelvic pressure YUMIKO EID Mar 05, 2017 11:37 am ZEINAB VARGAS DO Mar 12, 2017 11:56 am
== END 2017-03-04 15:40 | disposition home or self-care (01) ==
LOC: LDRP 14:41 → WSo 14:41
PROVIDERS: ATTEND Obstetrics & Gynecology
DX: O47.1 False labor at or after 37 completed weeks of gestation (principal); Z3A.38 38 weeks gestation of pregnancy
CPT/HCPCS: 99212

== ENCOUNTER 2017-03-05 09:52 | Outpatient (CLI) | payer MEDICAID ==
[~2017-03-05] VITALS: Ht 170.2 cm; Wt 78.5 kg
[~2017-03-05 09:52] MED LIST changes: +OMEP20TA7 PO
[2017-03-05 10:21] VITALS: BP 116/77
== END 2017-03-05 10:20 | disposition home or self-care (01) ==
LOC: PREOP 09:52
PROVIDERS: ATTEND Obstetrics & Gynecology
DX: Z01.818 Encounter for other preprocedural examination (principal); O34.219 Maternal care for unspecified type scar from previous cesarean delivery; Z3A.00 Weeks of gestation of pregnancy not specified; Z80.41 Family history of malignant neoplasm of ovary
CPT/HCPCS: 87081

== ENCOUNTER 2017-03-12 06:48 | Inpatient (IN) | payer MEDICAID ==
[2017-03-12] VITALS (7 sets, daily range): BP systolic 103–126; BP diastolic 59–86
[~2017-03-12] VITALS: Ht 170.2 cm; Wt 78.5 kg
[2017-03-12] MEDS ORDERED: LACTATED RINGERS 1,000 ML IV PRN ×2 (07:14)
[2017-03-12] MEDS ORDERED: CITRIC ACID/SOB CIT (BICITRA) 30 ML UDC PO ONE (07:15)
[2017-03-12] MEDS ORDERED: FAMOTIDINE 20MG/2ML IV (PEPCID) IV ONE (07:15)
[2017-03-12] MEDS ORDERED: CATHETER FLUSH 10 ML SYR IV PRN (07:15)
[2017-03-12] MEDS ORDERED: METOCLOPRAMIDE INJ 10 MG/2 ML (REGLAN) IV ONE (07:15)
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
[2017-03-12] MEDS ORDERED: ceFAZolin 2 GM/50 ML NS 50 ML ONE (08:02)
[2017-03-12 08:09] LABS: BASOPHILS # (AUTO) 0.1 10^3/uL (0.0-0.1); BASOPHILS % (AUTO) 1 % (0-10); EOSINOPHILS # (AUTO) 0.1 10^3/uL (0.0-0.3); EOSINOPHILS % (AUTO) 1 % (0-10); LYMPHOCYTES # (AUTO) 2.3 X 10^3 (1.0-4.0); LYMPHOCYTES % (AUTO) 21 % (12-44); MEAN CORPUSCULAR HEMOGLOBIN 28 PG (25-34); MEAN CORPUSCULAR HGB CONC 33 G/DL (32-36); MEAN CORPUSCULAR VOLUME 87 FL (80-99); MEAN PLATELET VOLUME 11.1 FL (7.4-10.4); MONOCYTES % (AUTO) 9 % (0-12); NEUTROPHILS # (AUTO) 7.6 X 10^3 (1.8-7.8); NEUTROPHILS % (AUTO) 69 % (42-75); PLATELET COUNT 256 10^3/uL (130-400); RED BLOOD COUNT 4.06 10^6/uL (4.35-5.85); RED CELL DISTRIBUTION WIDTH 12.4 % (10.0-14.5)
[2017-03-12] MEDS ORDERED: ceFAZolin 2 GM/50 ML NS 50 ML IV ONE (08:15)
[2017-03-12] MEDS ORDERED: morphine INJ 10 MG/ML 1ML (SYR OR VIAL) ONE (09:06)
[2017-03-12] MEDS ORDERED: OXYTOCIN/NORMAL SALINE 1,000 ML IV ONE (09:06)
[2017-03-12] MEDS ORDERED: fentaNYL INJECTION 100 MCG/2 ML AMP ONE (09:06)
[2017-03-12] MEDS ORDERED: morphine PF (DURAMORPH) 10 MG/10 ML AMP ONE (09:19)
[2017-03-12] MEDS ORDERED: PHENYLEPHRINE 100 MCG/ML 10 ML (ANESTHESIA) SYR ONE (10:01)
[2017-03-12] MEDS ORDERED: ONDANSETRON 4 MG/2 ML (SDV) Z0FRAN IV PRN (10:45)
[2017-03-12] MEDS ORDERED: NALOXONE 0.4 MG/ML 1 ML (NARCAN) VIAL IV PRN (10:45)
[2017-03-12] MEDS ORDERED: fentaNYL INJECTION 100 MCG/2 ML AMP INJ ONE (10:45)
[2017-03-12] MEDS ORDERED: morphine PF (DURAMORPH) 10 MG/10 ML AMP INJ ONE (10:45)
[2017-03-12] MEDS ORDERED: OXYTOCIN/NORMAL SALINE 500 ML IV SCH (11:17)
--- NOTE | 2017-03-12 11:20 | Progress Note-Post Operative ---
Post-Operative Progess Note Surgeon (s)/Perinatal Coordinator (s) Surgeon ZEINAB VARGAS DO Perinatal Coordinator: Dilcia Quezada Pre-Operative Diagnosis Previous Post-Operative Diagnosis same Procedure & Operative Findings Date of Procedure 03/12/17 Procedure Performed/Findings RLTCS and RRS OPERATIVE REPORT IN DETAIL: Once in the operating room, spinal anesthesia was found to be adequate. She was placed in the supine position with a leftward tilt, prepped and draped in normal sterile fashion. A timeout is performed and anesthesia is tested. I then proceed with making a Pfannenstiel skin incision to the previously existing scar using a knife and carried down to the underlying fascia using Bovie cautery. The fascial incision is extended laterally using Bovie cautery. The superior aspect of the fascial incision was then grasped with Raul clamps, tented upward and dissected off the underlying rectus muscles. During this dissection there is severe scarring of the rectus muscle to the fascia, it is difficult to separate the two layers as the muscle layer is nearly obliterated. Inferior aspect of the fascial incision was then grasped with Raul clamps, tented upward and dissected off the underlying rectus muscles as best as I can. The rectus muscles were then dissected down the midline using De La Torre scissors, which exposed the peritoneum and allows me to enter bluntly. I then extend the peritoneal incision using blunt traction, placing Mikey ring retractor in the peritoneal incision which offers excellent lateral sidewall retraction. I then identified the lower uterine segment which was found to be thinned out and make an incision into the vesicouterine peritoneum and bluntly dissected a bladder flap off of the lower uterine segment. I then proceed with my myotomy until membranes are visualized. At which point, I extend the uterine incision laterally and superiorly using bandage scissors. I then performed amniotomy using an Allis clamp. Clear fluid was noted. The infant is found in vertex presentation. With gentle fundal pressure, the 's head is elevated and delivered through the incision and then the nares and oropharynx are then bulb suctioned. The anterior and posterior shoulders are delivered. The is then brought out into the operative field where the cord was doubly clamped and cut. Infant was handed off to the awaiting nurses in attendance. Cord blood was collected and 3-vessel cord with intact placenta is delivered spontaneously thereafter. IV Pitocin is initiated to facilitate uterine contraction. Uterine fundus became firmer with bimanual massage. The uterus was then exteriorized and cleared of all endometrial clots and debris. I then closed the uterine incision using 0 Vicryl suture in running locking fashion. A 2nd layer of imbricating 0 Monocryl was placed. Excellent hemostasis was noted after doing so. I then perform a bilateral salpingectomy by doing the following: a window in the mesosalpinx is created using bovie cautery. I then cauterize down the mesosalpinx to the isthmic tube insertion and ligate the tube using 2-0 vicryl. In similar fashion I ligate the distal ampullary portion's connection with the ovary using 2-0 vicryl suture. No bleeding was noted from any of this dissection. I then placed the uterus back within the pelvis and copiously irrigated the pelvis using normal saline. There was no active bleeding noted from any of my dissection planes. I placed Interceed antiadhesive over my lower transverse incision and proceeded with closing the peritoneum using 3-0 Vicryl in running fashion. The rectus muscle was reapproximated using 3-0 Vicryl sutures in interrupted fashion. The fascia was reapproximated using 0 Vicryl fashion. The subcutaneous tissues reapproximated using 3-0 plain in an interrupted fashion and the skin was reapproximated using 4-0 Monocryl in a running subcuticular. Dermabond was applied to the incision. A sterile dressing is adhesive white tape. The patient tolerated the procedure well and was sent to the recovery area in stable condition. Lap and sponge counts correct at the end of the procedure. Instrument counts were correct as well. Two grams of Ancef was given preoperatively for infection prophylaxis. Anesthesia Type spinal Estimated Blood Loss Estimated blood loss (mL): 600 Specimens/Packing Specimens Removed tubes, placenta ZEINAB VARGAS Mar 12, 2017 11:20
[2017-03-12] MEDS ORDERED: TETANUS,DIPTH,PERTUSS P/F (BOOSTRIX) 0.5 ML VIAL IM SCH (11:30)
[2017-03-12] MEDS ORDERED: HYDROmorphone (DILAUDID) 2 MG/ML VIAL IVP PRN (11:30)
[2017-03-12] MEDS ORDERED: ONDANSETRON 4 MG/2 ML (SDV) Z0FRAN IVP PRN (11:30)
[2017-03-12] MEDS ORDERED: KETOROLAC 30 MG/ML VIAL IVP SCH (11:30)
[2017-03-12] MEDS ORDERED: MEASLES,MUMPS,RUBELLA 1 EA INJ SC SCH (11:30)
[2017-03-12] MEDS ORDERED: D5 LR IV SOLUTION 1,000 ML IV ONE (13:00)
[2017-03-12] MEDS ORDERED: CATHETER FLUSH 10 ML SYR IV SCH (14:00)
[2017-03-12] MEDS: DOCUSATE SODIUM 100 MG (COLACE) CAP PO SCH (21:28)
[2017-03-12] MEDS ORDERED: FAMOTIDINE 20 MG (PEPCID) TABLET PO PRN (21:45)
[2017-03-13] MEDS ORDERED: IBUPROFEN 800 MG (MOTRIN) TAB PO ONE (00:08)
[2017-03-13] MEDS ORDERED: IBUPROFEN 600 MG (MOTRIN) TAB PO ONE ×2 (00:20→05:45)
[2017-03-13 00:27] VITALS: BP 110/71
[2017-03-13] MEDS: IBUPROFEN 600 MG (MOTRIN) TAB PO SCH ×4 (00:31→20:01)
[2017-03-13] MEDS: HYDROcodone/APAP 5 MG/325 MG (LORTAB) TAB PO PRN ×2 (02:29→10:24)
[2017-03-13 06:00] VITALS: BP 103/69
[2017-03-13 06:39] LABS: BASOPHILS % (AUTO) 0 % (0-10); EOSINOPHILS # (AUTO) 0.2 10^3/uL (0.0-0.3); EOSINOPHILS % (AUTO) 2 % (0-10); LYMPHOCYTES # (AUTO) 2.4 X 10^3 (1.0-4.0); LYMPHOCYTES % (AUTO) 16 % (12-44); MEAN CORPUSCULAR HEMOGLOBIN 28 PG (25-34); MEAN CORPUSCULAR HGB CONC 33 G/DL (32-36); MEAN CORPUSCULAR VOLUME 87 FL (80-99); MEAN PLATELET VOLUME 11.2 FL (7.4-10.4); MONOCYTES # (AUTO) 1.2 X 10^3 (0.0-1.0); MONOCYTES % (AUTO) 8 % (0-12); NEUTROPHILS # (AUTO) 10.9 X 10^3 (1.8-7.8); NEUTROPHILS % (AUTO) 74 % (42-75); PLATELET COUNT 248 10^3/uL (130-400); RED BLOOD COUNT 3.95 10^6/uL (4.35-5.85); RED CELL DISTRIBUTION WIDTH 12.4 % (10.0-14.5); WHITE BLOOD COUNT 14.8 10^3/uL (4.3-11.0)
[2017-03-13 10:15] VITALS: BP 100/64
[2017-03-13] MEDS: DOCUSATE SODIUM 100 MG (COLACE) CAP PO SCH ×2 (10:25→20:01)
--- NOTE | 2017-03-13 11:30 | Progress Note-Standard ---
Standard Progress Note Progress Notes/Assess & Plan Date Seen by Provider: Mar 13, 2017 Time Seen by Provider: 11:00 Progress/Assessment & Plan Patient doing well POD 1 RLTCS with RRS. Reports decent pain control but is asking for something stronger. Denies heavy lochia. She is . Vital Sign - Last 24 Hours 03/12/17 03/12/17 03/12/17 03/12/17 11:30 12:25 17:39 21:30 Temp 97.1 97.3 97.1 Pulse 87 75 77 Resp 16 20 20 B/P (MAP) 126/86 112/79 103/68 Pulse Ox 99 99 98 O2 Delivery Room Air Room Air Room Air Room Air 03/13/17 03/13/17 03/13/17 00:27 06:00 10:15 Temp 97.1 96.7 96.5 Pulse 81 72 83 Resp 20 18 18 B/P (MAP) 110/71 103/69 100/64 Pulse Ox 97 97 99 O2 Delivery Room Air Room Air Room Air Incision: c/d/i Laboratory Tests Test 03/13/17 05:50 Range/Units White Blood Count 14.8 H 4.3-11.0 10^3/uL Red Blood Count 3.95 L 4.35-5.85 10^6/uL Hemoglobin 11.2 L 11.5-16.0 G/DL Hematocrit 34 L 35-52 % Mean Corpuscular Volume 87 80-99 FL Mean Corpuscular Hemoglobin 28 25-34 PG Mean Corpuscular Hemoglobin Concent 33 32-36 G/DL Red Cell Distribution Width 12.4 10.0-14.5 % Platelet Count 248 130-400 10^3/uL Mean Platelet Volume 11.2 H 7.4-10.4 FL Neutrophils (%) (Auto) 74 42-75 % Lymphocytes (%) (Auto) 16 12-44 % Monocytes (%) (Auto) 8 0-12 % Eosinophils (%) (Auto) 2 0-10 % Basophils (%) (Auto) 0 0-10 % Neutrophils # (Auto) 10.9 H 1.8-7.8 X 10^3 Lymphocytes # (Auto) 2.4 1.0-4.0 X 10^3 Monocytes # (Auto) 1.2 H 0.0-1.0 X 10^3 Eosinophils # (Auto) 0.2 0.0-0.3 10^3/uL Basophils # (Auto) 0.0 0.0-0.1 10^3/uL Diagnosis: POD 1 RLTCS + RRS P: Continue routine PO/ PP care Anticipate dc tomorrow Encourage ambulation and IS use ZEINAB VARGAS DO Mar 13, 2017 11:30 am
[2017-03-13] MEDS ORDERED: IBUP-1773 PO (11:32)
[2017-03-13] MEDS ORDERED: DOCU100C37 PO (11:32)
[2017-03-13] MEDS ORDERED: HYDR-3816 PO (11:32)
--- NOTE | 2017-03-13 11:32 | Discharge Inst-Women's Service ---
Discharge Inst-Women's Serv Depart Medication/Instructions New, Converted or Re-Newed RX: RX on Chart Consults/Follow Up Additional Follow Up: Yes Orders/Referrals Dr. Vargas in 7-10 days and in 6 weeks Activity Activity: Activity as Tolerated Driving Instructions: No Driving for 1 Week NO SMOKING: NO SMOKING Nothing Inside Vagina: No Douching, No Nowthen, No Tampons Diet Discharge Diet: No Restrictions Symptoms to Report to : Bleeding Excessive, Pain Increased, Fever Over 101 Degrees F, Vaginal Bleeding Increase, Questions/Concerns For Any Problems or Questions: Contact Your Physician Skin/Wound Care Infection Signs and Symptoms: Increased Redness, Foul Odor of Wound, Increased Drainage, Skin Itchy or Has a Rash, Increased Swelling, Temperature Above 101 F Operative Area Clean and Dry: Keep Incision Clean/Dry Stitches/Julia/Dermabond: Dermabond, Care of Stitches Bathing Instructions: Shower (x 2 weeks) ZEINAB VARGAS DO Mar 13, 2017 11:32 am
--- NOTE | 2017-03-13 14:58 | Anesthesia-Regional Post-Op ---
Regional Patient Condition Mental Status: Alert, Oriented x3 Circulation: Same as Pre-Op Headache: Absent Sensation: Full Recovery Motor Block: Absent Post Op Complications Complications None Follow Up Care/Instructions Patient Instructions None needed. Anesthesia/Patient Condition Patient is doing well, no complaints, stable vital signs, no apparent adverse anesthesia problems. SATURNINO PARADA DO Mar 13, 2017 14:58
[2017-03-13] MEDS: HYDROcodone/APAP 7.5 MG/325 MG (LORTAB, LORCET PLUS) TABLET PO PRN ×2 (15:32→22:53)
[2017-03-13 15:33] VITALS: BP 115/71
[2017-03-13 20:00] VITALS: BP 108/75
[2017-03-13] MEDS ORDERED: CHLORASEPTIC LOZENGE MM PRN (20:45)
[2017-03-14 02:45] VITALS: BP 112/82
[2017-03-14] MEDS: IBUPROFEN 600 MG (MOTRIN) TAB PO SCH ×2 (02:50→09:38)
[2017-03-14] MEDS: HYDROcodone/APAP 7.5 MG/325 MG (LORTAB, LORCET PLUS) TABLET PO PRN ×2 (05:32→12:14)
--- NOTE | 2017-03-14 08:55 | Progress Note-Standard ---
Standard Progress Note Progress Notes/Assess & Plan Date Seen by Provider: Mar 14, 2017 Time Seen by Provider: 08:54 Progress/Assessment & Plan this patient is without complaint. She is ambulating, voiding, tolerating fairly well, has good pain control, patient requesting discharge home. Vital Signs Date Time Temp Pulse Resp B/P (MAP) Pulse Ox O2 Delivery O2 Flow Rate FiO2 03/14/17 02:45 97.8 83 18 112/82 99 03/13/17 20:00 98.0 69 18 108/75 100 03/13/17 15:33 97.2 81 18 115/71 98 Room Air 03/13/17 10:15 96.5 83 18 100/64 99 Room Air vital signs are stable. Patient is afebrile. The abdomen is benign. Extreme show clubbing cyanosis. There is no Homans sign. There is some pretibial pitting edema that is normal. Assessment and plan postoperative day number 2 status post repeat doing well. Plan is for discharge home with follow-up in clinic Final Diagnosis repeat delivery WHITLEY POE MD Mar 14, 2017 8:55 am
[2017-03-14 09:38] VITALS: BP 107/69
[2017-03-14] MEDS: DOCUSATE SODIUM 100 MG (COLACE) CAP PO SCH (09:38)
== END 2017-03-14 13:01 | disposition home or self-care (01) | DRG 766 ==
LOC: LDRP 06:48 → WS 10:28
PROVIDERS: ADMIT Obstetrics & Gynecology; ATTEND Obstetrics & Gynecology
PROC: 0UT70ZZ Resection of Bilateral Fallopian Tubes, Open Approach (ICD-10-PCS; 2017-03-12)
PROC: 3E0P05Z Introduction of Adhesion Barrier into Female 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, Open Approach (ICD-10-PCS; 2017-03-12)
PROC: 10D00Z1 Extraction of Products of Conception, Low, Open Approach (ICD-10-PCS; principal; 2017-03-12 09:23)
DX: O34.211 Maternal care for low transverse scar from previous cesarean delivery (principal); Z80.41 Family history of malignant neoplasm of ovary; Z3A.39 39 weeks gestation of pregnancy; Z37.0 Single live birth
CPT/HCPCS: 36415; 85025; 86850; 86900; 86901; 88302; 94664

== ENCOUNTER 2017-03-14 19:30 | Emergency (ER) | payer MEDICAID ==
[~2017-03-14] VITALS: Ht 157.5 cm; Wt 72.6 kg
[~2017-03-14 19:30] MED LIST changes: +DOCU100C37 PO; +HYDR-3816 PO; +IBUP-1773 PO
--- NOTE | 2017-03-14 19:48 | ED General ---
General Chief Complaint: General Problems/Pain Stated Complaint: PAIN AT INCISION FROM Source of Information: Patient Exam Limitations: No Limitations History of Present Illness Time Seen by Provider: 19:46 Initial Comments To ER with suprapubic pain at the site of her incision. She had this done 2 days ago and was discharged about 1 p.m. today. She took the baby home and by the time she was able to get the prescriptions filled the pharmacies were closed. Timing/Duration: 1-2 Days Severity: Moderate Allergies and Home Medications Allergies Coded Allergies: Cephalosporins (Verified Allergy, Unknown, 05/03/16) Penicillins (Verified Allergy, Unknown, 04/13/15) apple (Unverified Allergy, Unknown, 03/13/17) FROM UNCODED ALLERGIES apricot (Unverified Allergy, Unknown, 03/13/17) FROM UNCODED ALLERGIES fluconazole (Verified Allergy, Unknown, 04/13/15) levofloxacin (Verified Allergy, Unknown, 04/13/15) nitrofurantoin (Verified Allergy, Unknown, 04/13/15) peach (Unverified Allergy, Unknown, 03/13/17) FROM UNCODED ALLERGIES strawberry (Verified Allergy, Unknown, 04/13/15) Uncoded Allergies: IM IV STEROIDS (Allergy, Unknown, 04/13/15) KIAW (Allergy, Unknown, 04/13/15) TOOTHPASTE (Allergy, Unknown, 04/13/15) Home Medications Cyclobenzaprine HCl 10 Mg Tablet, 10 MG PO Q8H, #15 Prescribed by: HAYDEN READ on 03/03/170 Docusate Sodium 100 Mg Capsule, 100 MG PO BID, #40 Prescribed by: ZEINAB VARGAS on 03/13/17 1132 Hydrocodone/Acetaminophen 1 Each Tablet, 1-2 EA PO Q4H PRN for PAIN-MODERATE, # 50 Prescribed by: ZEINAB VARGAS on 03/13/17 1132 Ibuprofen 600 Mg Tablet, 600 MG PO Q6H, #80 Prescribed by: ZEINAB VARGAS on 03/13/17 1132 Omeprazole 20 Mg Tablet.dr, 20 MG PO BID, (Reported) Ihi029/FA/Omega3/Dha/Fish Oil 1 Each Tab.chew, 1 EACH PO DAILY, (Reported) Prednisone 10 Mg Tab, 40 MG PO DAILY, #12 Prescribed by: HAYDEN READ on 03/03/172109 Ranitidine HCl 150 Mg Tablet, 150 MG PO DAILY, (Reported) Zolpidem Tartrate 5 Mg Tablet, 5 MG PO HS for 30 Days Prescribed by: CYRUS COPE on 03/03/172012 Constitutional: see HPI EENTM: see HPI Respiratory: no symptoms reported Cardiovascular: no symptoms reported Genitourinary: no symptoms reported Musculoskeletal: no symptoms reported Skin: no symptoms reported Past Amlyrhq-Xtdqwj-Uavlju Hx Patient Social History Type Used: Electronic/Vapor Recent Foreign Travel: No Contact w/Someone Who Travel: No Recent Hopitalizations: No Immunizations Up To Date Tetanus Booster (TDap): Unknown Seasonal Allergies Seasonal Allergies: Yes Surgeries History of Surgeries: Yes (HILLAYR PLACED AND REMOVED R FEMUR, several facial bx's) Surgeries: Section, Gallbladder, Orthopedic Respiratory History of Respiratory Disorde: No Cardiovascular History of Cardiac Disorders: No Neurological History of Neurological Disord: Yes Neurological Disorders: Headaches /Migraines 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 System Female 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 Disorders: Denies Genitourinary History of Genitourinary Disor: No Gastrointestinal History of Gastrointestinal Di: No Musculoskeletal History of Musculoskeletal Dis: Yes (pinched nerve in back) Musculoskeletal Disorders: Arthritis, Back Injury, Chronic Back Pain, Fractures Endocrine History of Endocrine Disorders: No HEENT History of HEENT Disorders: No Cancer History of Cancer: No Psychosocial History of Psychiatric Problem: Yes Behavioral Health Disorders: Anxiety Integumentary History of Skin or Integumenta: No Blood Transfusions History of Blood Disorders: No Adverse Reaction to a Blood Tr: No Family Medical History Family Medial History: Alcoholism 19 FATHER Diabetes mellitus 19 FATHER 19 MOTHER Drug abuse 19 FATHER Hypertension 19 FATHER 19 MOTHER Kidney disease 19 FATHER Physical Exam Vital Signs Capillary Refill : General Appearance: No Apparent Distress, WD/WN Eyes: Bilateral Eye Normal Inspection, Bilateral Eye PERRL, Bilateral Eye EOMI HEENT: PERRL/EOMI, TMs Normal, Other (she also reports ulcerations large on her tongue for the past several years that get worse when she is under stress and the tongue appearance is that of geographic tongue. She states her little sore at this time. I'll give her some viscous lidocaine.) Neck: Full Range of Motion, Normal Inspection Respiratory: No Accessory Muscle Use, No Respiratory Distress Extremity: Normal Capillary Refill, Normal Inspection Neurologic/Psychiatric: Alert, Oriented x3, No Motor/Sensory Deficits Skin: Normal Color, Warm/Dry, Other ( incision site is clean dry and intact without erythema or drainage.) Progress/Results/Core Measures Results/Orders My Orders Orders - SATINDER RODRIGUEZ APRN Rx-Oxycodone/Apap 5-325 Mg (Rx-Percocet (03/14/17 19:45) Lidocaine 2% Viscous 15 Ml (Xylocaine Vi (03/14/17 19:45) Departure Impression Impression: Primary Impression: Geographic tongue Additional Impression: Postoperative pain Disposition: 01 HOME, SELF-CARE Condition: Stable Departure-Patient Inst. Decision time for Depature: 19:48 Referrals: FAHEEM WASHINGTON DO (PCP/Family) Primary Care Physician Patient Instructions: Postoperative Pain (DC) Add. Discharge Instructions: 1. Follow-up with her doctors as scheduled 2. Return to ER for any concerns 3. All discharge instructions reviewed with patient and/or family. Voiced understanding. SATINDER RODRIGUEZ APRN Mar 14, 2017 19:48
[2017-03-14] MEDS: LIDOCAINE 2% VISCOUS 15 ML UDC PO ONE (19:55)
[2017-03-14] MEDS: RX-OXYCODONE/APAP 5-325 MG #4 TAB PK PO PRN (19:55)
[2017-03-14] MEDS: oxyCODONE/APAP 5/325MG (PERCOCET 5) TABLET PO ONE (19:55)
[2017-03-14 19:58] VITALS: BP 151/96
== END 2017-03-14 19:58 | disposition home or self-care (01) ==
LOC: EDUNIT# 19:30 → ER 19:32
DX: O99.63 Diseases of the digestive system complicating the puerperium (principal); K14.1 Geographic tongue; O99.89 Other specified diseases and conditions complicating pregnancy, childbirth and the puerperium; G89.18 Other acute postprocedural pain
CPT/HCPCS: 99283

== ENCOUNTER 2017-03-30 16:14 | Emergency (ER) | payer MEDICAID ==
[~2017-03-30] VITALS: Ht 157.5 cm; Wt 72.6 kg
--- NOTE | 2017-03-30 17:00 | ED GU-Female ---
General Chief Complaint: -Female Stated Complaint: POST /VAGINAL BLEEDING Nursing Triage Note: PT REPORTS HEAVY VAGINAL BLEEDING SINCE ABOUT 1500 THIS AFTERNOON. SHE IS APPROX 3 WEEKS POST C SECTION. SHE REPORTS HAVING INTERCOURSE SEVERAL TIMES IN THE LAST FEW WEEKS. PT DENIES ANY PAIN AT THIS TIME. Nursing Sepsis Screen: No Definite Risk Source: patient Exam Limitations: no limitations History of Present Illness Time seen by provider: 16:30 Initial Comments Here with report of vaginal bleeding. She is approximately 3 weeks post C- section for her second delivery. She reports sexual activity several days twice in one day and then 2 days ago sexual activity again. She reports using a condom for those episodes. No pain after the first episodes but did have cramping after sexual activity 2 days ago. That has stopped. She noted vaginal bleeding of the significant amount today and states that blood was just pouring out of her vagina into the toilet. She reports that she is still bleeding currently. She called her doctor who sent her to the ER for evaluation. Timing/Duration: this afternoon Severity/Quality: moderate Location: vaginal Radiation: suprapubic Activities at Onset: sexual activity Sexual [place] History: less than 2 months ago, single partner Modifying Factors: Improves With Movement Associated Symptoms: abdominal pain, No dysuria, No lower back pain, nausea/ vomiting, No urinary frequency Allergies and Home Medications Allergies Coded Allergies: Cephalosporins (Verified Allergy, Unknown, 05/03/16) Penicillins (Verified Allergy, Unknown, 04/13/15) apple (Unverified Allergy, Unknown, 03/13/17) FROM UNCODED ALLERGIES apricot (Unverified Allergy, Unknown, 03/13/17) FROM UNCODED ALLERGIES fluconazole (Verified Allergy, Unknown, 04/13/15) levofloxacin (Verified Allergy, Unknown, 04/13/15) nitrofurantoin (Verified Allergy, Unknown, 04/13/15) peach (Unverified Allergy, Unknown, 03/13/17) FROM UNCODED ALLERGIES strawberry (Verified Allergy, Unknown, 04/13/15) Uncoded Allergies: IM IV STEROIDS (Allergy, Unknown, 04/13/15) KIAW (Allergy, Unknown, 04/13/15) TOOTHPASTE (Allergy, Unknown, 04/13/15) Home Medications Cyclobenzaprine HCl 10 Mg Tablet, 10 MG PO Q8H, #15 Prescribed by: HAYDEN READ on 03/03/170 Docusate Sodium 100 Mg Capsule, 100 MG PO BID, #40 Prescribed by: ZEINAB ARCE on 03/13/17 1132 Hydrocodone/Acetaminophen 1 Each Tablet, 1-2 EA PO Q4H PRN for PAIN-MODERATE, # 50 Prescribed by: ZEINAB AREC on 03/13/17 1132 Ibuprofen 600 Mg Tablet, 600 MG PO Q6H, #80 Prescribed by: ZEINAB ARCE on 03/13/17 1132 Omeprazole 20 Mg Tablet.dr, 20 MG PO BID, (Reported) Phd606/FA/Omega3/Dha/Fish Oil 1 Each Tab.chew, 1 EACH PO DAILY, (Reported) Prednisone 10 Mg Tab, 40 MG PO DAILY, #12 Prescribed by: HAYDEN READ on 03/03/170 Ranitidine HCl 150 Mg Tablet, 150 MG PO DAILY, (Reported) Zolpidem Tartrate 5 Mg Tablet, 5 MG PO HS for 30 Days Prescribed by: CYRUS COPE on 03/03/172012 Constitutional: see HPI, No chills, No fever EENTM: no symptoms reported Respiratory: no symptoms reported Cardiovascular: no symptoms reported Gastrointestinal: see HPI Genitourinary: discharge, denies flank pain, denies hematuria, pain : No Musculoskeletal: no symptoms reported Skin: no symptoms reported All Other Systemes Reviewed Negative Unless Noted: Yes Past Wgbjelq-Iascva-Azxmsf Hx Patient Social History Alcohol Use: Denies Use Recreational Drug Use: No Smoking Status: Current Everyday Smoker Type Used: Electronic/Vapor 2nd Hand Smoke Exposure: No Recent Foreign Travel: No Contact w/Someone Who Travel: No Recent Infectious Disease Expo: No Recent Hopitalizations: Yes () Physical Abuse: No Sexual Abuse: No Immunizations Up To Date Tetanus Booster (TDap): Unknown Seasonal Allergies Seasonal Allergies: Yes Surgeries History of Surgeries: Yes (HILLARY PLACED AND REMOVED R FEMUR, several facial bx's) Surgeries: Section, Gallbladder, Orthopedic Respiratory History of Respiratory Disorde: No Cardiovascular History of Cardiac Disorders: No Neurological History of Neurological Disord: Yes Neurological Disorders: Headaches /Migraines 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 System Female 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 Disorders: Denies Genitourinary History of Genitourinary Disor: No Gastrointestinal History of Gastrointestinal Di: No Musculoskeletal History of Musculoskeletal Dis: Yes (pinched nerve in back) Musculoskeletal Disorders: Arthritis, Back Injury, Chronic Back Pain, Fractures Endocrine History of Endocrine Disorders: No HEENT History of HEENT Disorders: No Cancer History of Cancer: No Psychosocial History of Psychiatric Problem: Yes Behavioral Health Disorders: Anxiety Suicide Risk Score: 0 Integumentary History of Skin or Integumenta: No Blood Transfusions History of Blood Disorders: No Adverse Reaction to a Blood Tr: No Family Medical History Family Medial History: Alcoholism 19 FATHER Diabetes mellitus 19 FATHER 19 MOTHER Drug abuse 19 FATHER Hypertension 19 FATHER 19 MOTHER Kidney disease 19 FATHER Physical Exam Vital Signs Vital Sign - Last 12Hours 03/30/17 16:30 Pulse 94 Resp 16 B/P (MAP) 133/93 Pulse Ox 97 O2 Delivery Room Air Capillary Refill : Less Than 3 Seconds General Appearance: WD/WN, no apparent distress HEENT: PERRL/EOMI, pharynx normal Neck: full range of motion, supple Cardiovascular: regular rate, rhythm, no murmur Respiratory: lungs clear, normal breath sounds Gastrointestinal: non tender, soft Pelvic: normal external exam, normal adnexa, vaginal bleeding, other (small amount of blood at the cervix and within the vaginal vault. Small clot at the cervix.) Extremities: non-tender, normal inspection Neurologic/Psychiatric: alert, oriented x 3 Skin: normal color, warm/dry Progress/Results/Core Measures Results/Orders Lab Results Laboratory Tests Test 03/30/17 17:24 Range/Units White Blood Count 7.1 4.3-11.0 10^3/uL Red Blood Count 4.61 4.35-5.85 10^6/uL Hemoglobin 13.0 11.5-16.0 G/DL Hematocrit 40 35-52 % Mean Corpuscular Volume 87 80-99 FL Mean Corpuscular Hemoglobin 28 25-34 PG Mean Corpuscular Hemoglobin Concent 33 32-36 G/DL Red Cell Distribution Width 13.6 10.0-14.5 % Platelet Count 343 130-400 10^3/uL Mean Platelet Volume 10.7 H 7.4-10.4 FL Neutrophils (%) (Auto) 48 42-75 % Lymphocytes (%) (Auto) 39 12-44 % Monocytes (%) (Auto) 7 0-12 % Eosinophils (%) (Auto) 6 0-10 % Basophils (%) (Auto) 1 0-10 % Neutrophils # (Auto) 3.4 1.8-7.8 X 10^3 Lymphocytes # (Auto) 2.8 1.0-4.0 X 10^3 Monocytes # (Auto) 0.5 0.0-1.0 X 10^3 Eosinophils # (Auto) 0.4 H 0.0-0.3 10^3/uL Basophils # (Auto) 0.1 0.0-0.1 10^3/uL Sodium Level 140 135-145 MMOL/L Potassium Level 3.9 3.6-5.0 MMOL/L Chloride Level 108 H 98-107 MMOL/L Carbon Dioxide Level 25 21-32 MMOL/L Anion Gap 7 5-14 MMOL/L Blood Urea Nitrogen 12 7-18 MG/DL Creatinine 0.70 0.60-1.30 MG/DL Estimat Glomerular Filtration Rate > 60 BUN/Creatinine Ratio 17 Glucose Level 94 70-105 MG/DL Calcium Level 8.8 8.5-10.1 MG/DL Total Bilirubin 0.4 0.1-1.0 MG/DL Aspartate Amino Transf (AST/SGOT) 19 5-34 U/L Alanine Aminotransferase (ALT/SGPT) 11 0-55 U/L Alkaline Phosphatase 78 40-136 U/L Total Protein 6.9 6.4-8.2 GM/DL Albumin 3.9 3.2-4.5 GM/DL My Orders Orders - MUNDO BEY MD Cbc With Automated Diff (03/30/17 16:51) Comprehensive Metabolic Panel (03/30/17 16:51) Saline Lock/Iv-Start (03/30/17 16:51) Us Non Ob Pelvis Comp/Transvag (03/30/17 16:51) Vital Signs/I&O Vital Sign - Last 12Hours 03/30/17 16:30 Pulse 94 Resp 16 B/P (MAP) 133/93 Pulse Ox 97 O2 Delivery Room Air Blood Pressure Mean: 106 Progress Note : Progress Note Seen and evaluated. Pelvic exam done. Labs ordered. Pelvic ultrasound ordered. I did discuss the case with Dr. Arce at 1654. He agrees with evaluation. 1821: Bleeding has decreased some. Ultrasound complete and shows intrauterine blood but no retained products. No pain currently. Discharged home with return precautions. Patient verbalize understanding instructions and agreement with plan. Diagnostic Imaging Diagonstic Imaging: Ultrasound Plain Films/CT/US/NM/MRI: pelvis Comments Intrauterine blood but no evidence of retained products of conception. Per preliminary read Departure Impression Impression: Primary Impression: Vaginal bleeding Disposition: 01 HOME, SELF-CARE Condition: Stable Departure-Patient Inst. Decision time for Depature: 18:08 Referrals: FAHEEM WASHINGTON DO (PCP) Primary Care Physician ZEINAB ARCE DO (Family) Primary Care Physician Patient Instructions: IRREGULAR VAGINAL BLEEDING Add. Discharge Instructions: All discharge instructions reviewed with patient and/or family. Voiced understanding. You will need to avoid vaginal intercourse until 6 weeks after your . Follow-up with your Dr. for recheck and further evaluation as needed. Return for worse pain, persistent vaginal bleeding, bleeding greater than 2 pads per hour for more than 2 hours or other concerns as needed. Drink plenty of fluids. Copy Copies To 1: ZEINAB ARCE TIMOTHY D MD Mar 30, 2017 16:59
[2017-03-30 17:33] LABS: BASOPHILS # (AUTO) 0.1 10^3/uL (0.0-0.1); BASOPHILS % (AUTO) 1 % (0-10); EOSINOPHILS # (AUTO) 0.4 10^3/uL (0.0-0.3); EOSINOPHILS % (AUTO) 6 % (0-10); LYMPHOCYTES # (AUTO) 2.8 X 10^3 (1.0-4.0); LYMPHOCYTES % (AUTO) 39 % (12-44); MEAN CORPUSCULAR HEMOGLOBIN 28 PG (25-34); MEAN CORPUSCULAR HGB CONC 33 G/DL (32-36); MEAN CORPUSCULAR VOLUME 87 FL (80-99); MEAN PLATELET VOLUME 10.7 FL (7.4-10.4); MONOCYTES # (AUTO) 0.5 X 10^3 (0.0-1.0); MONOCYTES % (AUTO) 7 % (0-12); NEUTROPHILS # (AUTO) 3.4 X 10^3 (1.8-7.8); NEUTROPHILS % (AUTO) 48 % (42-75); PLATELET COUNT 343 10^3/uL (130-400); RED BLOOD COUNT 4.61 10^6/uL (4.35-5.85); RED CELL DISTRIBUTION WIDTH 13.6 % (10.0-14.5); WHITE BLOOD COUNT 7.1 10^3/uL (4.3-11.0)
[2017-03-30 17:52] LABS: ALANINE AMINOTRANSFERASE 11 U/L (0-55); ALBUMIN 3.9 GM/DL (3.2-4.5); ANION GAP 7 MMOL/L (5-14); ASPARTATE AMINO TRANSFERASE 19 U/L (5-34); BILIRUBIN,TOTAL 0.4 MG/DL (0.1-1.0); BLOOD UREA NITROGEN 12 MG/DL (7-18); BUN/CREATININE RATIO 17; CALCIUM 8.8 MG/DL (8.5-10.1); CARBON DIOXIDE 25 MMOL/L (21-32); CHLORIDE 108 MMOL/L (98-107); GFR ESTIMATED > 60; GLUCOSE 94 MG/DL (70-105); POTASSIUM 3.9 MMOL/L (3.6-5.0); SODIUM 140 MMOL/L (135-145); TOTAL PROTEIN 6.9 GM/DL (6.4-8.2)
--- NOTE | 2017-03-30 18:30 | Diagnostic Imaging Report ---
INDICATION: Three weeks post section. Heavy vaginal bleeding starting today. TECHNIQUE: Multiple real-time grayscale sonographic images were obtained of the pelvis transabdominally and transvaginally. CORRELATION STUDY: None. FINDINGS: UTERUS/ENDOMETRIUM: Uterus measures 9.7 x 8.0 x 6.6 cm. The endometrial canal is significantly distended with likely fluid. The canal measures upwards of 2.4 cm. The fluid is somewhat heterogeneous in its echotexture. RIGHT OVARY: Not visualized. LEFT OVARY: Not visualized. Ovaries may be obscured by bowel gas or perhaps position. No significant free pelvic fluid. IMPRESSION: 1. Significantly abnormal appearance about the endometrium. The endometrium appears to be distended with fluid, likely blood products. Etiology is somewhat indeterminate. Vascularity does not appear to be overly increased to suggest retained products of conception but overall findings are abnormal. Dictated by: Dictated on workstation # [id number]
[2017-03-30 18:34] VITALS: BP 133/93
== END 2017-03-30 18:34 | disposition home or self-care (01) ==
LOC: EDUNIT# 16:14 → ER 16:16
DX: O72.1 Other immediate postpartum hemorrhage (principal); O99.345 Other mental disorders complicating the puerperium; F41.9 Anxiety disorder, unspecified; O99.355 Diseases of the nervous system complicating the puerperium; G43.909 Migraine, unspecified, not intractable, without status migrainosus; O99.335 Smoking (tobacco) complicating the puerperium; F17.290 Nicotine dependence, other tobacco product, uncomplicated; Z87.828 Personal history of other (healed) physical injury and trauma; Z87.81 Personal history of (healed) traumatic fracture; Z87.51 Personal history of pre-term labor
CPT/HCPCS: 36415; 76830; 76856; 80053; 85025; 99284

== ENCOUNTER → 2017-04-21 | Outpatient (CLI) | payer MEDICAID ==
[~2017-04-21] MED LIST changes: +IOHEXOL 350 MG/ML 100 ML (OMNIPAQUE 350) VIAL IV ONE; +NS 100 ML (IVPB) BAG IV ONE
== END ==
LOC: RAD 08:58
PROVIDERS: ATTEND Family Medicine
DX: M79.9 Soft tissue disorder, unspecified (principal)
CPT/HCPCS: 70470

== ENCOUNTER 2017-09-26 01:26 | Emergency (ER) | payer MEDICAID ==
[~2017-09-26] VITALS: Ht 170.2 cm; Wt 69.4 kg
[~2017-09-26 01:26] MED LIST changes: +ACHD5005 PO; +HYDR-34 PO; -HYDR-3812 PO; -HYDR-3816 PO; -IOHEXOL 350 MG/ML 100 ML (OMNIPAQUE 350) VIAL IV ONE; -NS 100 ML (IVPB) BAG IV ONE; +PHEN15CA; -PHEN15CA67
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
[2017-09-26] MEDS ORDERED: KETOROLAC 30 MG/ML VIAL IVP ONE (02:15)
[2017-09-26 02:19] LABS: BASOPHILS # (AUTO) 0.1 10^3/uL (0.0-0.1); BASOPHILS % (AUTO) 1 % (0-10); EOSINOPHILS # (AUTO) 1.1 10^3/uL (0.0-0.3); EOSINOPHILS % (AUTO) 14 % (0-10); HEMATOCRIT 37 % (35-52); HEMOGLOBIN 12.8 G/DL (11.5-16.0); LYMPHOCYTES # (AUTO) 2.9 X 10^3 (1.0-4.0); LYMPHOCYTES % (AUTO) 35 % (12-44); MEAN CORPUSCULAR HEMOGLOBIN 30 PG (25-34); MEAN CORPUSCULAR HGB CONC 34 G/DL (32-36); MEAN CORPUSCULAR VOLUME 88 FL (80-99); MONOCYTES # (AUTO) 0.6 X 10^3 (0.0-1.0); MONOCYTES % (AUTO) 7 % (0-12); NEUTROPHILS # (AUTO) 3.6 X 10^3 (1.8-7.8); NEUTROPHILS % (AUTO) 44 % (42-75); PLATELET COUNT 258 10^3/uL (130-400); RED BLOOD COUNT 4.22 10^6/uL (4.35-5.85); WHITE BLOOD COUNT 8.2 10^3/uL (4.3-11.0)
[2017-09-26 02:36] LABS: BUN/CREATININE RATIO 19; CALCIUM 8.4 MG/DL (8.5-10.1); CARBON DIOXIDE 19 MMOL/L (21-32); CHLORIDE 109 MMOL/L (98-107); CREATININE SERUM 0.62 MG/DL (0.60-1.30); GFR ESTIMATED > 60; GLUCOSE 84 MG/DL (70-105); POTASSIUM 3.7 MMOL/L (3.6-5.0); SODIUM 139 MMOL/L (135-145)
[2017-09-26 02:39] LABS: ERYTHROCYTE SEDIMENTATION RATE 6 MM/HR (0-20)
[2017-09-26 02:54] LABS: BASOPHILS % (MANUAL) 1 %; EOSINOPHILS % (MANUAL) 13 %; LYMPHOCYTES % (MANUAL) 38 %; MONOCYTES % (MANUAL) 12 %; NEUTROPHILS % (MANUAL) 36 %; RBC MORPH NORMAL
[2017-09-26] MEDS ORDERED: PRD20T PO (03:07)
[2017-09-26] MEDS ORDERED: predniSONE 20 MG TAB PO ONE (03:15)
[2017-09-26 03:22] VITALS: BP 119/84
--- NOTE | 2017-09-26 07:11 | Diagnostic Imaging Report ---
INDICATION: Pain COMPARISON: None FINDINGS: Two views of the chest were obtained. Heart size is normal. The pulmonary vessels appear unremarkable. There is no pneumothorax, mediastinal widening or pleural fluid demonstrated. No acute fracture, malalignment or osseous destructive process is seen. The lungs are clear. The osseous structures appear unremarkable. IMPRESSION: No acute abnormality is demonstrated. Dictated by: Dictated on workstation # [id number]
== END 2017-09-26 03:22 | disposition home or self-care (01) ==
LOC: EDUNIT# 01:26 → ER 01:28
DX: M94.0 Chondrocostal junction syndrome [Tietze] (principal); F41.9 Anxiety disorder, unspecified; G43.909 Migraine, unspecified, not intractable, without status migrainosus; F17.210 Nicotine dependence, cigarettes, uncomplicated; Z87.81 Personal history of (healed) traumatic fracture; Z87.59 Personal history of other complications of pregnancy, childbirth and the puerperium; Z79.52 Long term (current) use of systemic steroids; Z88.0 Allergy status to penicillin; Z88.1 Allergy status to other antibiotic agents; Z88.3 Allergy status to other anti-infective agents
CPT/HCPCS: 36415; 71046; 80048; 84484; 84703; 85007; 85027; 85652; 86141; 93005

== ENCOUNTER 2017-09-28 18:39 | Emergency (ER) | payer MEDICAID ==
[~2017-09-28] VITALS: Ht 170.2 cm; Wt 68.9 kg
[2017-09-28 19:37] LABS: BASOPHILS % (AUTO) 0 % (0-10); EOSINOPHILS % (AUTO) 0 % (0-10); HEMATOCRIT 42 % (35-52); HEMOGLOBIN 13.8 G/DL (11.5-16.0); LYMPHOCYTES # (AUTO) 1.3 X 10^3 (1.0-4.0); LYMPHOCYTES % (AUTO) 10 % (12-44); MEAN CORPUSCULAR HEMOGLOBIN 30 PG (25-34); MEAN CORPUSCULAR HGB CONC 33 G/DL (32-36); MEAN CORPUSCULAR VOLUME 90 FL (80-99); MEAN PLATELET VOLUME 11.1 FL (7.4-10.4); MONOCYTES # (AUTO) 0.2 X 10^3 (0.0-1.0); MONOCYTES % (AUTO) 2 % (0-12); NEUTROPHILS # (AUTO) 11.3 X 10^3 (1.8-7.8); NEUTROPHILS % (AUTO) 88 % (42-75); PLATELET COUNT 271 10^3/uL (130-400); RED BLOOD COUNT 4.59 10^6/uL (4.35-5.85); RED CELL DISTRIBUTION WIDTH 13.6 % (10.0-14.5); WHITE BLOOD COUNT 12.9 10^3/uL (4.3-11.0)
[2017-09-28 19:57] LABS: BAND NEUTROPHILS 0 %; BASOPHILS % (MANUAL) 0 %; EOSINOPHILS % (MANUAL) 2 %; LYMPHOCYTES % (MANUAL) 12 %; MONOCYTES % (MANUAL) 1 %; NEUTROPHILS % (MANUAL) 85 %; RBC MORPH NORMAL
[2017-09-28 19:58] LABS: ERYTHROCYTE SEDIMENTATION RATE 1 MM/HR (0-20)
[2017-09-28 20:06] LABS: ALANINE AMINOTRANSFERASE 12 U/L (0-55); ALBUMIN 4.5 GM/DL (3.2-4.5); ALKALINE PHOSPHATASE 66 U/L (40-136); BILIRUBIN,TOTAL 0.2 MG/DL (0.1-1.0); BUN/CREATININE RATIO 17; CARBON DIOXIDE 21 MMOL/L (21-32); CHLORIDE 107 MMOL/L (98-107); CREATININE SERUM 0.76 MG/DL (0.60-1.30); GFR ESTIMATED > 60; GLUCOSE 103 MG/DL (70-105); POTASSIUM 4.2 MMOL/L (3.6-5.0); SODIUM 138 MMOL/L (135-145); TOTAL PROTEIN 7.3 GM/DL (6.4-8.2)
--- NOTE | 2017-09-28 20:14 | ED General ---
General Chief Complaint: General Problems/Pain Stated Complaint: PAIN ALL OVER Nursing Triage Note: pt presents to ed with complaints of neck, head, shoulder, and back pain. pt was seen in ed a couple days ago and diagnosed with costocondritis and prescribed a steriod. pt reports pain is more intense and radiating down her body. Nursing Sepsis Screen: No Definite Risk Source of Information: Patient Exam Limitations: No Limitations History of Present Illness Date Seen by Provider: Sep 28, 2017 Time Seen by Provider: 19:10 Initial Comments Here with report of a variety of complaints resolving around muscle pain. States that she was seen a couple days ago and was diagnosed with costochondritis and started on steroids and ibuprofen. She had stopped ibuprofen for bad burning pain that is refluxing. States now that she has pain in her chest and shoulders and back and mid spine radiating around and she wanted to get checked out prior to this covering her whole body because she would not be available to handle it. She is also afraid that something serious is going on due to this pain is moving about her body. Denies fever currently. Does have some upper respiratory congestion. States this is definitely not her reflux because she's had that bad before and this does not feel like it. Timing/Duration: 1 Hour Severity: Moderate Associated Systoms: No Denies Symptoms, Chest Pain, Cough, No Fever/Chills, No Nausea/Vomiting, No Shortness of Air, No Weakness Allergies and Home Medications Allergies Coded Allergies: Cephalosporins (Verified Allergy, Unknown, 05/03/16) Penicillins (Verified Allergy, Unknown, 04/13/15) apple (Unverified Allergy, Unknown, 03/13/17) FROM UNCODED ALLERGIES apricot (Unverified Allergy, Unknown, 03/13/17) FROM UNCODED ALLERGIES fluconazole (Verified Allergy, Unknown, 04/13/15) levofloxacin (Verified Allergy, Unknown, 04/13/15) nitrofurantoin (Verified Allergy, Unknown, 04/13/15) peach (Unverified Allergy, Unknown, 03/13/17) FROM UNCODED ALLERGIES strawberry (Verified Allergy, Unknown, 04/13/15) Uncoded Allergies: IM IV STEROIDS (Allergy, Unknown, 04/13/15) KIAW (Allergy, Unknown, 04/13/15) TOOTHPASTE (Allergy, Unknown, 9/25/15) Home Medications Cyclobenzaprine HCl 10 Mg Tablet, 10 MG PO Q8H Prescribed by: HAYDEN READ on 03/03/172109 Docusate Sodium 100 Mg Capsule, 100 MG PO BID Prescribed by: ZEINAB VARGAS on 03/13/171131 Hydrocodone Bit/Acetaminophen 1 Each Tablet, 1-2 EA PO Q4H PRN for PAIN-MODERATE Prescribed by: ZEINAB VARGAS on 03/13/171131 Ibuprofen 600 Mg Tablet, 600 MG PO Q6H Prescribed by: ZEINAB VARGAS on 03/13/171131 Omeprazole 20 Mg Tablet.dr, 20 MG PO BID, (Reported) Gun941/FA/Omega3/Dha/Fish Oil 1 Each Tab.chew, 1 EACH PO DAILY, (Reported) Prednisone 10 Mg Tab, 40 MG PO DAILY Prescribed by: HAYDEN READ on 03/03/172109 Prednisone 20 Mg Tab, 20 MG PO BID Prescribed by: NAMRATA ZIMMERMAN on 09/26/17 030 Ranitidine HCl 150 Mg Tablet, 150 MG PO DAILY, (Reported) Zolpidem Tartrate 5 Mg Tablet, 5 MG PO HS Prescribed by: CYRUS COPE on 03/03/172012 Patient Home Medication List Home Medication List Reviewed: Yes Constitutional: see HPI, No chills, No fever EENTM: see HPI, nose congestion Respiratory: see HPI, cough, No short of breath Cardiovascular: no symptoms reported Gastrointestinal: no symptoms reported Musculoskeletal: see HPI, muscle pain, No muscle stiffness Skin: no symptoms reported Psychiatric/Neurological: See HPI, Anxiety, Other (myalgias) All Other Systems Reviewed Negative Unless Noted: Yes Past Kbutbrx-Wbatjw-Kkdfhr Hx Patient Social History Alcohol Use: Occasionally Uses Recreational Drug Use: No Smoking Status: Current Everyday Smoker Type Used: Electronic/Vapor 2nd Hand Smoke Exposure: No Recent Foreign Travel: No Contact w/Someone Who Travel: No Recent Infectious Disease Expo: No Recent Hopitalizations: No () Physical Abuse: No Sexual Abuse: No Mistreated: No Fear: No Immunizations Up To Date Tetanus Booster (TDap): Unknown Seasonal Allergies Seasonal Allergies: Yes Surgeries History of Surgeries: Yes (HILLARY PLACED AND REMOVED R FEMUR, several facial bx's) Surgeries: Section, Gallbladder, Orthopedic Respiratory History of Respiratory Disorde: No Cardiovascular History of Cardiac Disorders: No Neurological History of Neurological Disord: Yes Neurological Disorders: Headaches /Migraines 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 System Female 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 Disorders: Denies Genitourinary History of Genitourinary Disor: No Gastrointestinal History of Gastrointestinal Di: No Musculoskeletal History of Musculoskeletal Dis: Yes (pinched nerve in back) Musculoskeletal Disorders: Arthritis, Back Injury, Chronic Back Pain, Fractures Endocrine History of Endocrine Disorders: No HEENT History of HEENT Disorders: No Cancer History of Cancer: No Psychosocial History of Psychiatric Problem: Yes Behavioral Health Disorders: Anxiety Suicide Risk Score: 0 Integumentary History of Skin or Integumenta: No Blood Transfusions History of Blood Disorders: No Adverse Reaction to a Blood Tr: No Reviewed Nursing Assessment Reviewed/Agree w Nursing PMH: Yes Family Medical History Family Medial History: Alcoholism 19 FATHER Diabetes mellitus 19 FATHER 19 MOTHER Drug abuse 19 FATHER Hypertension 19 FATHER 19 MOTHER Kidney disease 19 FATHER Physical Exam Vital Signs Vital Signs - First Documented 09/28/17 18:56 Temp 98.1 Pulse 104 Resp 18 B/P (MAP) 127/79 (95) Pulse Ox 100 Capillary Refill : Less Than 3 Seconds General Appearance: WD/WN, Anxious HEENT: PERRL/EOMI, Pharynx Normal Neck: Non Tender, Supple Respiratory: Lungs Clear, Normal Breath Sounds Cardiovascular: Regular Rate, Rhythm, No Murmur Gastrointestinal: Non Tender, Soft Back: No Decreased Range of Motion, Other (complains of muscle pain wherever touch especially in the upper back) Extremity: Normal Range of Motion, Other (tenderness to the shoulders and upper arms wherever touched) Neurologic/Psychiatric: Alert, Oriented x3 Skin: Normal Color, Warm/Dry Progress/Results/Core Measures Suspected Sepsis Recent Fever Within 48 Hours: No Infection Criteria Present: None New/Unexplained Altered Menta: No Sepsis Screen: No Definite Risk Sepsis Diagnosis: SIRS Temperature:98.1 Pulse: 104 Respiratory Rate: 18 Laboratory Tests 09/28/17 19:23: White Blood Count 12.9H Blood Pressure 127 /79 Mean: 95 Laboratory Tests 09/28/17 19:23: Creatinine 0.76, Platelet Count 271, Total Bilirubin 0.2 Results/Orders Lab Results Laboratory Tests Test 09/28/17 19:23 Range/Units White Blood Count 12.9 H 4.3-11.0 10^3/uL Red Blood Count 4.59 4.35-5.85 10^6/uL Hemoglobin 13.8 11.5-16.0 G/DL Hematocrit 42 35-52 % Mean Corpuscular Volume 90 80-99 FL Mean Corpuscular Hemoglobin 30 25-34 PG Mean Corpuscular Hemoglobin Concent 33 32-36 G/DL Red Cell Distribution Width 13.6 10.0-14.5 % Platelet Count 271 130-400 10^3/uL Mean Platelet Volume 11.1 H 7.4-10.4 FL Neutrophils (%) (Auto) 88 H 42-75 % Lymphocytes (%) (Auto) 10 L 12-44 % Monocytes (%) (Auto) 2 0-12 % Eosinophils (%) (Auto) 0 0-10 % Basophils (%) (Auto) 0 0-10 % Neutrophils # (Auto) 11.3 H 1.8-7.8 X 10^3 Lymphocytes # (Auto) 1.3 1.0-4.0 X 10^3 Monocytes # (Auto) 0.2 0.0-1.0 X 10^3 Eosinophils # (Auto) 0.0 0.0-0.3 10^3/uL Basophils # (Auto) 0.0 0.0-0.1 10^3/uL Neutrophils % (Manual) 85 % Lymphocytes % (Manual) 12 % Monocytes % (Manual) 1 % Eosinophils % (Manual) 2 % Basophils % (Manual) 0 % Band Neutrophils 0 % Blood Morphology Comment NORMAL Erythrocyte Sedimentation Rate 1 0-20 MM/HR Sodium Level 138 135-145 MMOL/L Potassium Level 4.2 3.6-5.0 MMOL/L Chloride Level 107 98-107 MMOL/L Carbon Dioxide Level 21 21-32 MMOL/L Anion Gap 10 5-14 MMOL/L Blood Urea Nitrogen 13 7-18 MG/DL Creatinine 0.76 0.60-1.30 MG/DL Estimat Glomerular Filtration Rate > 60 BUN/Creatinine Ratio 17 Glucose Level 103 70-105 MG/DL Calcium Level 9.0 8.5-10.1 MG/DL Total Bilirubin 0.2 0.1-1.0 MG/DL Aspartate Amino Transf (AST/SGOT) 15 5-34 U/L Alanine Aminotransferase (ALT/SGPT) 12 0-55 U/L Alkaline Phosphatase 66 40-136 U/L Total Creatine Kinase 22 L 29-168 U/L C-Reactive Protein High Sensitivity 0.03 0.00-0.50 MG/DL Total Protein 7.3 6.4-8.2 GM/DL Albumin 4.5 3.2-4.5 GM/DL Micro Results Microbiology 09/28/17 Influenza Types A,B Antigen (TAMI) - Final, Complete My Orders Orders - MUNDO BEY MD Cbc With Automated Diff (09/28/17 19:20) Comprehensive Metabolic Panel (09/28/17 19:20) Hs C Reactive Protein (09/28/17 19:20) Influenza A And B Antigens (09/28/17 19:20) Erythrocyte Sedimentation Rate (09/28/17 19:20) Manual Differential (09/28/17 19:23) Creatine Kinase (09/28/17 20:27) Vital Signs/I&O Vital Sign - Last 12Hours 09/28/17 18:56 Temp 98.1 Pulse 104 Resp 18 B/P (MAP) 127/79 (95) Pulse Ox 100 Capillary Refill : Less Than 3 Seconds Blood Pressure Mean: 95 Progress Note : Progress Note Seen and evaluated. Labs ordered. Influenza screen ordered. Monitor patient. Labs negative. White count slightly elevated but she is on prednisone currently. We will add total CK to evaluate for myositis type situation. Monitor patient. 2109: Labs negative. I will prescribe short dose of pain medicine but otherwise I think she is safe to follow-up with her primary care doctor tomorrow. She states that she will see him. I will send a copy of the chart to Dr. Jackman as well. Discharged home with return precautions. Patient verbalize understanding instructions and agreement with plan. Departure Impression Impression: Primary Impression: Myalgia Disposition: HOME, SELF-CARE Condition: Stable Departure-Patient Inst. Decision time for Depature: 21:15 Referrals: FAHEEM JACKMAN DO (PCP/Family) Primary Care Physician Patient Instructions: Muscle and Bone Pain (DC) Add. Discharge Instructions: All discharge instructions reviewed with patient and/or family. Voiced understanding. Take medications as directed. Follow-up with your doctor tomorrow for recheck and further evaluation. Return for worse pain, fever, vomiting, weakness, breathing problems or other concerns as needed. Scripts Hydrocodone Bit/Acetaminophen (Hydrocodone/Acetaminophen 5/325mg Tablet) 1 Tab Tab 1-2 EACH PO Q6H Y for PAIN-MODERATE, #10 TAB 0 Refills Prov: MUNDO BEY MD 09/28/17 Copy Copies To 1: FAHEEM JACKMAN TIMOTHY D MD Sep 28, 2017 20:14
[2017-09-28] MEDS ORDERED: ACHD5005 PO (21:16)
[2017-09-28] MEDS ORDERED: RX-HYDROCODONE/APAP 5/325 MG #4 TAB PK PO PRN (21:30)
[2017-09-28 21:35] VITALS: BP 125/87
== END 2017-09-28 21:35 | disposition home or self-care (01) ==
LOC: EDUNIT# 18:39 → ER 18:40
DX: M79.1 Myalgia (principal); M54.2 Cervicalgia; R51 Headache; M54.9 Dorsalgia, unspecified; K21.9 Gastro-esophageal reflux disease without esophagitis; M25.519 Pain in unspecified shoulder; F41.9 Anxiety disorder, unspecified; F17.210 Nicotine dependence, cigarettes, uncomplicated; Z87.81 Personal history of (healed) traumatic fracture; Z87.828 Personal history of other (healed) physical injury and trauma; Z87.59 Personal history of other complications of pregnancy, childbirth and the puerperium; Z88.0 Allergy status to penicillin; Z88.1 Allergy status to other antibiotic agents; Z91.041 Radiographic dye allergy status; Z79.52 Long term (current) use of systemic steroids
CPT/HCPCS: 36415; 80053; 82550; 85007; 85027; 85652; 86141; 87804; 99283

== ENCOUNTER 2018-02-09 11:54 | Emergency (ER) | payer MEDICAID ==
[~2018-02-09] VITALS: Ht 170.2 cm; Wt 72.6 kg
[~2018-02-09 11:54] MED LIST changes: -INDO50CA; +INDO50CA11; -RANI150T15 PO; +RANI150T46 PO
--- OUTSIDE RECORDS SUMMARY | 2018-02-09 11:59 | XMS REPORT | Clinical Summary ---
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 If you do not see the information that you expected, contact Release of Information in the Health Information Management department at [phone] for further assistance in locating additional records.[facility] Allergies Active Allergy Reactions Severity Noted Date Comments Amoxicillin ANAPHYLAXIS High 11/25/2017 Apple UNKNOWN Low 11/25/2017 Apricot UNKNOWN Low 11/25/2017 Cephalexin ANAPHYLAXIS High 11/25/2017 Kiwi UNKNOWN Low 11/25/2017 Levofloxacin ANAPHYLAXIS High 11/25/2017 Nitrofurantoin ANAPHYLAXIS High 11/25/2017 Monohyd/M-Cryst Milk SEE COMMENTS Low 11/25/2017 Lactose allergy Pollen SEE COMMENTS Low 11/25/2017 Standard allergy symptom Soy ANAPHYLAXIS High 11/25/2017 Current Medications Prescription Sig. Disp. Refills Start End Date Status Date aspirin/acetaminophen/caf Take 1 tablet by mouth. 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 H/O glossectomy 11/25/2017 Encounters Date Type Specialty Care Team Description 11/25/2017 Office Visit Otolaryngology Jono Duran MD Congenital hemifacial hypertrophy; H/O glossectomy 11/12/2017 Telephone Oncology Jono Duran MD Navigation Assessment from Last 3 Months Family History Medical History Relation Name Comments Allergy-severe Father Dizziness Father High Cholesterol Father Migraines Father Stroke Maternal Grandfather Dizziness Mother High Cholesterol Mother Migraines Mother Relation Name Status Comments Father Maternal Grandfather Mother Social History Tobacco Use Types Packs/Day Years Used Date Current Every Day Smoker Smokeless Tobacco: Never Used Comments: Vape Pen Alcohol Use Drinks/Week oz/Week Comments Yes 6 Cans of 3.6 beer Sex Assigned at Date Recorded Not on file Last Filed Vital Signs Vital Sign Reading Time Taken Blood Pressure 124/85 11/25/2017 12:30 PM CDT Pulse 81 11/25/2017 12:30 PM CDT Temperature - - Respiratory Rate - - Oxygen Saturation - - Inhaled Oxygen - - Concentration Weight 72.8 kg (160 lb 6.4 oz) 11/25/2017 12:30 PM CDT Height 170.2 cm (5' 7") 11/25/2017 12:30 PM CDT Body Mass Index 25.12 11/25/2017 12:30 PM CDT Plan of Treatment Health Maintenance Due Date Last Done Comments PHYSICAL (COMPREHENSIVE) 1997 EXAM PERTUSSIS VACCINE 2001 HIV SCREENING 2005 TETANUS VACCINE 2007 CERVICAL CANCER SCREENING 2011 INFLUENZA VACCINE 04/19/2018 HPV VACCINES Aged Out No longer eligible based on patient's age to complete this topic Results Not on filefrom Last 3 Months
--- OUTSIDE RECORDS SUMMARY | 2018-02-09 12:00 | XMS REPORT | Encounter Summary ---
Author Author [facility] Organization [facility] Address Unknown Phone Unavailable Care Team Providers Care Aspnet Developer Name Role Phone Gasper Carson PCP Reason for Visit * Reason Comments Mass Tongue mass * Consult, Test & Treat (Routine) Status Reason Specialty Diagnoses / Referred By Referred To Procedures Contact Contact No Auth Needed Otolaryngology Diagnoses Jono Duran MD NEW, tongue [address] lesion, [place] [address] rocedures Phone: NEW PATIENT [phone] Encounter Details Date Type Department Care Team Description 11/25/2017 Office Visit [facility] Jono Duran MD Congenital hemifacial Physicians - ENT [address] hypertrophy; [place] [address] H/O glossectomy [facility] Level [facility]C [phone] [place] [address] Social History Tobacco Use Types Packs/Day Years Used Date Current Every Day Smoker Smokeless Tobacco: Never Used Comments: Vape Pen Alcohol Use Drinks/Week oz/Week Comments Yes 6 Cans of 3.6 beer Sex Assigned at Date Recorded Not on file as of this encounter Last Filed Vital Signs Vital Sign Reading [...] Mass Index 25.12 11/25/2017 12:30 PM CDT in this encounter Progress Notes * Jono Duran MD - 11/25/2017 12:00 PM CDT Formatting of this note may be different from the original. Chief Complaint Patient presents with Mass Tongue mass History of Present Illness: Shayna Mccain is a 27 y.o. year old female evaluated on 11/25/2017, in the Otolaryngology-Head and Neck Surgery Clinic at the [facility]. The patient was referred by Dr. Jackman for evaluation of right lateral tongue lesion. She has a history of hemifacial hypertrophy. When she was 8 years old, she had some lesions on her oral tongue that were excised. She is unsure about the exact pathology, but was told they were benign. She has no oral pain, erythema, bleeding, odynophagia, dysphagia or otalgia. Weight is stable. 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 Past Medical/Surgical History She has no past medical history on file. Past surgical history reviewed and is noncontributory. Past Family/Social History Family history reviewed and is noncontributory. She Medications/Allergies/Immunizations Her current medication(s) include: No current outpatient prescriptions on file. No current facility-administered medications for this visit. Allergies: Patient has no allergy information on record. Review of Systems Constitutional: Negative for fever, weight loss and weight gain. Skin: Negative for rash, itchiness, dryness HENT: Negative for ear pain, sore throat and hoarseness. Negative for difficulty swallowing. Cardiovascular: Negative for chest pain and dyspnea on exertion (Can climb up 2 floors). Respiratory: Is not experiencing shortness of breath. Gastrointestinal: Negative for nausea and vomiting. Neurological: Negative for headaches. Lymph/Heme: Negative for lymphadenopathy or easy bruising Musculoskeletal: Negative for joint or muscle pain Psychiatric: The patient is not nervous/anxious. All other systems are negative except for that listed in the HPI. PHYSICAL EXAM: Vital Signs: There were no vitals taken for this visit. General: Well-developed, well-nourished Communication and Voice: Clear pitch and clarity Hearing: Hearing adequate for verbal communication bilaterally Inspection: Normocephalic and atraumatic without mass or lesion Palpation: Facial skeleton intact without bony stepoffs Parotid Glands: No mass or tenderness Facial Strength: Facial motility symmetric and full bilaterally Pinna: External ear intact and fully developed External canal: Canal is patent with intact skin Tympanic Membrane: Clear and mobile External nose: No scar or anatomic deformity Internal Nose: Septum intact and midline. No edema, polyp, or rhinorrhea. TMJ: No pain to palpation with full mobility. Oral cavity, Lips, Teeth, and Gums: Mucosa and teeth intact and viable, No lesions, masses or ulcers. Previous partial glossectomy visualized. Appears to have significant scar tissue and contraction from it, but no concerning lesions identified. Previous gingivobuccal sulcus incision with scar tissue although no concerns. Oropharynx: No erythema or exudate, no masses or ulcerations, non-obstructive tonsils Larynx: Normal supraglottic and glottic structures without masses or ulcerations, normal vocal fold mobility Neck, Trachea, Lymphatics: Midline trachea without mass or lesion, no lymphadenopathy Thyroid: No mass or nodularity Eyes: No nystagmus with equal extraocular motion bilaterally Neuro/Psych/Balance: Patient oriented and appropriate in interaction; Appropriate mood and affect; Gait is intact with no imbalance; Cranial nerves I -XII are intact Respiratory effort: Equal inspiration and expiration without stridor Peripheral Vascular: Warm extremities with equal pulses PATHOLOGY REVIEW: N/A RADIOLOGIC REVIEW: N/A IMPRESSION: My impression is that Ms. Mccain has a history of hemifacial hypertrophy and history of partial glossectomy in childhood. Unsure of childhood pathology although was told it was benign. PLAN: On exam today, tongue appears to be within normal limits and no concerning signs or symptoms. Appears to have significant scar tissue from previous surgery. She will continue to f/u with OMFS/Dental. F/u with ENT as needed. ATTESTATION I personally performed the E/M including history, physical exam, and MDM. Staff name: Jono Duran MD Date: 11/25/2017 in this encounter Plan of Treatment Not on fileas of this encounter Visit Diagnoses Diagnosis Congenital hemifacial hypertrophy H/O glossectomy Personal history of surgery to other organs
--- OUTSIDE RECORDS SUMMARY | 2018-02-09 12:00 | XMS REPORT | Encounter Summary ---
Author Author [facility] Organization [facility] Address Unknown Phone Unavailable Care Team Providers Care Synthetic Cloth Binding Cutter Name Role Phone ChipCarson cuenca PCP Reason for Visit * Reason Comments Navigation Assessment Encounter Details Date Type Department Care Team Description 11/12/2017 Telephone [facility] Jono Duran MD Navigation Assessment [facility] Exam [address] [place] [address] [facility] [address] [facility] [place] [address] Social History Tobacco Use Types Packs/Day Years Used Date Never Assessed Sex Assigned at Date Recorded Not on file as of this encounter Miscellaneous Notes * Telephone Encounter - Angela Glover RN - 11/12/2017 4:58 PM CDT Navigation Intake Assessment Document Patient Name: Shayna Mccain : 1990 Insurance: [employer] Appointment Info: ThuNovember 25 at [address] Duran Diagnosis & Reason for Visit: Tongue lesion Physician Info: Referring Physician: Dr Terrance DDS Contact Name & Number: [phone] Surgeon: Dr Gabriel, [facility] [place], [facility] Location of Films: No imaging Location of Pathology: No biopsy History of Present Illness: 27 year old female with new right lateral tongue lesion, first noted by dentist. Pt has history of Hemihypertrophy to face and tongue. She reports having Laser surgery to tongue at age 9 and major reconstruction to right face at age 15. The hyperplasia to face was described as being a lesion from rt eye to chin that was reconstructed. Currently, pt reports pain to right side of mouth. She says there is a lesion on right tongue that has grown in size. She reports gagging and coughing frequently. No biopsies or imaging performed. Prior Treatment (XRT, Surgery, Chemotherapy): None NEEDS Assessment: Genetic Counseling: Not discussed. Nutrition: Gaining wt. No loss of appetite. No difficulty chewing, but difficulty swallowing. Social Work/Financial: , mother of 2 young children. Spiritual & Emotional: Emotional support provided Physical: No needs identified Communication: No needs identified Oncofertility - Females age 40 and under; Males age 50 and under : Not disucssed. in this encounter Plan of Treatment Not on fileas of this encounter Visit Diagnoses Not on filein this encounter
[2018-02-09] MEDS ORDERED: ORPHENADRINE 60 MG/2 ML (NORFLEX) AMP IM ONE (12:15)
[2018-02-09] MEDS ORDERED: KETOROLAC 60 MG/2 ML VIAL IM ONE (12:15)
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
[2018-02-09] MEDS ORDERED: CYCL10TA9 PO (14:29)
[2018-02-09] MEDS ORDERED: TRAM50TA2 PO (14:29)
[2018-02-09] MEDS ORDERED: PRD20T PO (14:41)
[2018-02-09 14:43] VITALS: BP 112/68
== END 2018-02-09 14:43 | disposition home or self-care (01) ==
LOC: EDUNIT# 11:54 → ER 11:56
DX: S16.1XXA Strain of muscle, fascia and tendon at neck level, initial encounter (principal); G43.909 Migraine, unspecified, not intractable, without status migrainosus; F41.9 Anxiety disorder, unspecified; Z98.51 Tubal ligation status; Z88.1 Allergy status to other antibiotic agents; Z88.0 Allergy status to penicillin; Z91.018 Allergy to other foods; Z87.59 Personal history of other complications of pregnancy, childbirth and the puerperium; X50.0XXA Overexertion from strenuous movement or load, initial encounter
CPT/HCPCS: 72125; 96372

== ENCOUNTER 2018-03-01 05:34 | Outpatient (CLI) | payer MEDICAID ==
[~2018-03-01] VITALS: Ht 170.2 cm; Wt 72.6 kg
[~2018-03-01 05:34] MED LIST changes: +TRAM50TA2 PO
[2018-03-01] MEDS ORDERED: TIZA2TAB3 PO (12:21)
[2018-03-01] MEDS ORDERED: PANT40TA3 PO (12:21)
== END 2018-03-01 12:28 | disposition home or self-care (01) ==
LOC: PREOP 05:34
PROVIDERS: ATTEND Surgery
DX: Z01.818 Encounter for other preprocedural examination (principal)

== ENCOUNTER 2018-03-03 10:05 | Day surgery (SDC) | payer MEDICAID ==
[~2018-03-03] VITALS: Ht 170.2 cm; Wt 72.6 kg
[~2018-03-03 10:05] MED LIST changes: +PANT40TA3 PO; +TIZA2TAB3 PO
--- OUTSIDE RECORDS SUMMARY | 2018-03-03 10:08 | XMS REPORT | Clinical Summary ---
Author Author [facility] Organization [facility] Address Unknown Phone Unavailable Care Team Providers Care Orchestra Teacher Name Role Phone Carson Jackman PCP Source Comments Some departments are not documenting in the electronic medical record. If you do not see the information that you expected, contact Release of Information in the Health Information Management department at [phone] for further assistance in locating additional records.[facility] Allergies Active Allergy Reactions Severity Noted [...] Congenital hemifacial hypertrophy 11/25/2017 H/O glossectomy 11/25/2017 Family History Medical History Relation Name Comments [...]
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
[2018-03-03 10:12] VITALS: BP 107/75
[2018-03-03] MEDS ORDERED: NS IV 500 ML 500 ML IV PRN (10:13)
[2018-03-03] MEDS ORDERED: HURRICAINE EXT TUBE (BENZOCAINE) XX PRN (10:15)
[2018-03-03] MEDS ORDERED: LIDOCAINE JELLY 2% (XYLOCAINE) 5 ML TUBE MM PRN (10:15)
[2018-03-03] MEDS ORDERED: NS IV 500 ML 500 ML ONE (10:15)
--- NOTE | 2018-03-03 10:22 | Conscious Sedation/ASA ---
Conscious Sedation Pre-Proced Time Reviewed: 10:00 ASA Class: 2 Airway Mallampati Classification: (apache appropriate class) I. II. III, IV Lungs Heart ASA score ASA 1: a normal healthy patient ASA 2: a patient with a mild systemic disease (mid diabetes, controlled hypertension, obesity ASA 3: a patient with a severe systemic disease that limits activity (angina , COPD, prior Myocardial infarction) ASA 4: a patient with an incapacitating disease that is a constant threat to life (CHF, renal failure) ASA 5: a moribund patient not expected to survive 24 hrs. (ruptured aneurysm) ASA 6: a declared brain patient whose organs are being harvested. For emergent operations, add the letter E after the classification Grade 2 Sedation Plan: Analgesia, Amnesia, Plan communicated to team members, Discussed options with patient/fam, Discussed risks with patient/fam Note The patient is an appropriate candidate to undergo the planned procedure, sedation, and anesthesia. The patient immediately re-assessed prior to indication. AMILCAR CARROLL MD Mar 03, 2018 10:22 am
--- NOTE | 2018-03-03 10:22 | Progress Note-Pre Operative ---
Pre-Operative Progress Note H&P Reviewed The H&P was reviewed, patient examined and no changes noted. Date Seen by Provider: Mar 03, 2018 Time Seen by Provider: 10:00 Date H&P Reviewed: Mar 03, 2018 Time H&P Reviewed: 10:00 Pre-Operative Diagnosis: AMILCAR GASTON MD Mar 03, 2018 10:22 am
[2018-03-03] MEDS ORDERED: HYDROcodone/APAP 5 MG/325 MG (LORTAB) TAB PO PRN (10:30)
[2018-03-03] MEDS ORDERED: morphine INJ 10 MG/ML 1ML (SYR OR VIAL) IV PRN (10:30)
[2018-03-03] MEDS ORDERED: ACETAMINOPHEN 325 MG TABLET PO PRN (10:30)
[2018-03-03] MEDS ORDERED: ONDANSETRON 4 MG/2 ML (SDV) Z0FRAN IV PRN (10:30)
[2018-03-03] MEDS ORDERED: LIDOCAINE JELLY 2% (XYLOCAINE) 5 ML TUBE ONE (11:39)
[2018-03-03] MEDS ORDERED: MIDAZOLAM 2 MG/2 ML (VERSED) VIAL ONE ×6 (11:39→11:58)
[2018-03-03] MEDS ORDERED: fentaNYL INJECTION 100 MCG/2 ML AMP ONE ×2 (11:39→12:03)
[2018-03-03] MEDS ORDERED: HURRICAINE EXT TUBE (BENZOCAINE) ONE (11:40)
[2018-03-03] MEDS: fentaNYL INJECTION 100 MCG/2 ML AMP IVP PRN ×3 (11:50→12:05)
[2018-03-03] MEDS: MIDAZOLAM 2 MG/2 ML (VERSED) VIAL IVP PRN ×6 (11:52→12:06)
--- NOTE | 2018-03-03 12:22 | Progress Note-Post Operative ---
Post-Operative Progess Note Surgeon (s)/Lighting Specialist (s) Surgeon AMILCAR CARROLL MD Lighting Specialist: none Pre-Operative Diagnosis GERD Post-Operative Diagnosis reflux esophagitis(grade 2), small HH(2cm), mod-severe gastritis. Procedure & Operative Findings Date of Procedure 03/03/18 Procedure Performed/Findings EGD with bx. Anesthesia Type CS Estimated Blood Loss Estimated blood loss (mL): minimal Specimens/Packing Specimens Removed antrum, GE jxn AMILCAR CARROLL MD Mar 03, 2018 12:22 pm
[2018-03-03] MEDS ORDERED: ONDN4T PO (12:24)
--- NOTE | 2018-03-03 12:24 | Discharge Inst-Surgical ---
D/C Lap Instructions-CARLY New, Converted, or Re-Newed RX: RX on Chart Follow Up Appt in 6 weeks Activity as tolerated High Fiber Diet 25g or more per day Avoid Alcohol, Caffeine, Spicy [place] and Acid foods. Drink 64 fluid oz or more of fluids per day. Symptoms to Report: Fever over 101 degree F, Nausea/Vomiting If any problems/questions: Contact your physician or go to Emergency Room AMILCAR CARROLL MD Mar 03, 2018 12:24 pm
[2018-03-03 12:30] VITALS: BP 94/57
[2018-03-03 13:00] VITALS: BP 102/67
[2018-03-03 13:15] VITALS: BP 102/67
--- NOTE | 2018-03-03 21:05 | OPERATIVE REPORT ---
DATE OF SERVICE: 03/03/2018 ATTENDING PRIMARY CARE PHYSICIAN: Dr. Carson Jackman. PREOPERATIVE DIAGNOSIS: Persistent gastroesophageal reflux disease. POSTOPERATIVE DIAGNOSES: 1. Reflux esophagitis, grade II. 2. A small hiatal hernia approximately 2 cm in size. 3. Moderate to severe gastritis. PROCEDURE: EGD with biopsy. SURGEON: Amilcar Carroll MD ANESTHESIA: Conscious sedation. ESTIMATED BLOOD LOSS: Minimal. FINDINGS: Reflux esophagitis grade II, no ulcers or strictures were identified in this region. There was a small hiatal hernia approximately 2 cm in size. There was a moderate to severe gastritis more towards the stomach antrum with some superficial erosions. Pylorus and duodenum appeared normal. DISPOSITION: The patient tolerated the procedure well. INDICATIONS: The patient is a 27-year-old female who has had a longstanding history of gastroesophageal reflux disease even as a child. 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 She reports that she has always had epigastric burning sensation as well as pain after meals. She does have some risk factors for reflux as well as peptic ulcer disease including drinking two caffeinated beverages, usually at night as well as drinking alcohol a few times on the weekend. She also does state that she only eats one meal a day, which is around 6 p.m. daily. DESCRIPTION OF PROCEDURE: The patient was brought to the endoscopy suite, laid in the left lateral decubitus position. After adequate IV pain and sedating medications and conscious sedation anesthesia, the mouthpiece was applied. Endoscope was then placed in the mouth visualizing the pharynx and hypopharyngeal region. Vocal cords, epiglottis and vallecula identified and appeared to be normal. The endoscope was then gently intubated. Esophageal opening and esophagus insufflated. Endoscope was then advanced to the first, second and third portion of the esophagus at the level of the GE junction, a reflux esophagitis grade II identified. There were no ulcers or strictures identified in this region. A biopsy was taken of the GE junction with forceps with visualization of good hemostasis. The endoscope was then advanced into the stomach and endoscope retroflexed, visualizing a small hiatal hernia approximately 2 cm in size. There was a moderate to severe gastritis more towards the stomach antrum with a few superficial erosions identified; however, no formal ulcerations. A biopsy was taken of one of these regions with forceps with visualization of good hemostasis. Endoscope was then advanced to the pylorus into the first and second portion of the duodenum, which appeared normal with no distal obstructions or duodenal ulcerations. The endoscope was then slowly withdrawn while taking a second look and suctioning of residual air with no additional findings. The patient tolerated the procedure well. We will recommend the necessary lifestyle and diet accommodation including small and more frequent meals, avoidance of eating at night as well as head elevation while lying supine. She also needs to avoid caffeinated beverages, spicy, greasy and acidic foods as well as alcoholic beverages. She was recently started on Protonix 40 mg daily and states that this has helped her symptoms and we do want her to continue with that medication for at least three months. Job ID: [id number] DocumentID: [id number] Dictated Date: 03/03/2018 12:22:53 Backup Sawyer Date: 03/03/2018 21:03:57 Dictated By: AMILCAR CARROLL MD
== END 2018-03-03 13:15 | disposition home or self-care (01) ==
LOC: ENDO 10:05
PROVIDERS: ATTEND Surgery
DX: K21.0 Gastro-esophageal reflux disease with esophagitis (principal); K44.9 Diaphragmatic hernia without obstruction or gangrene; K29.70 Gastritis, unspecified, without bleeding
CPT/HCPCS: 84703

== ENCOUNTER 2018-04-12 15:40 | Outpatient (RCR) | payer MEDICAID ==
[~2018-04-12 15:40] MED LIST changes: +ONDN4T PO
== END 2018-04-18 | disposition home or self-care (01) ==
PROVIDERS: ATTEND Family Medicine
DX: S16.1XXA Strain of muscle, fascia and tendon at neck level, initial encounter (principal); X58.XXXA Exposure to other specified factors, initial encounter; Y93.19 Activity, other involving water and watercraft

== ENCOUNTER 2018-04-21 16:05 | Emergency (ER) | payer MEDICAID ==
[~2018-04-21] VITALS: Ht 170.2 cm; Wt 81.6 kg
--- OUTSIDE RECORDS SUMMARY | 2018-04-21 16:13 | XMS REPORT | Clinical Summary ---
Author Author [facility] Organization [facility] Address Unknown Phone Unavailable Care Team Providers Care Pad Making Machine Operator Name Role Phone Carson Jackman PCP Source Comments Some departments are not documenting in the electronic medical record. If you do not see the information that you expected, contact Release of Information in the Health Information Management department at [phone] for further assistance in locating additional records.[facility] Allergies Active Allergy Reactions Severity Noted [...] 2007 CERVICAL CANCER SCREENING 2011 INFLUENZA VACCINE 02/17/2018 HPV VACCINES Aged Out No longer eligible based on patient's age to complete this topic Results Not on filefrom Last 3 Months
[2018-04-21] MEDS ORDERED: ORPHENADRINE 60 MG/2 ML (NORFLEX) AMP IV ONE (17:15)
[2018-04-21] MEDS ORDERED: KETOROLAC 30 MG/ML VIAL IVP ONE (17:15)
--- NOTE | 2018-04-21 17:16 | ED Neck-Back Pain/Injury ---
General Chief Complaint: General Problems/Pain Stated Complaint: HIGH BP 144/92 AT 1544, HEADACHE, SHAKEY Nursing Triage Note: PT AMB TO ROOM #6 W/O DIFFICULTY. A&OX4. C/O INCREASED BP AND HEAD/NECK PAIN W/ O INJURY. PT REPORTS SHE "MANUALLY TOOK HER BP @ 1430 WITH RESULTS OF 168/112 AND AGAIN AT 1534 WITH RESULTS OF 144/92." PT REPORTS "MY BP IS DIFFERENT IN MY RT AND LT ARM AND I KNOW THAT IS NOT GOOD." PT REPORTS SHE "HAS HAD VIRAL MENEGITIS IN THE PAST AND I CANT PUT MY CHIN TO MY CHEST AGAIN." INITIAL BP IN RT ARM NOTED TO BE 139/95 AND AGAIN IN HER LT ARM NOTED TO BE 129/98. PT DENIES INJURY AND RECENT FEVER OR CHILLS. INITIAL ORAL TEMP 98.6. PT REPORTS SHE HAS A PROCEDURE SCHEDULED WITH DR. VIERA TOMORROW. Nursing Sepsis Screen: No Definite Risk Source of Information: Patient Exam Limitations: No Limitations History of Present Illness Date Seen by Provider: Apr 21, 2018 Time Seen by Provider: 17:05 Initial Comments Patient is a 27-year-old female who presents to the emergency room with complaints of headache and neck pain for the past day. She reports she's also had hypertension throughout the day and has been under a lot of stress with school and she states that her and her have been fighting a lot. She says she's been under so much stress and has caused ulcers. She states that she' s had different pressure readings throughout the day and is concerned with the hypertension. She is normotensive on arrival to the emergency room. She has a history of cervical spine fractures 2 different occasions and sees a neurologist. She also reports she's had viral meningitis in 2003. Location: [facility] Allergies and Home Medications Allergies Coded Allergies: Cephalosporins (Verified Allergy, Unknown, 05/03/16) Penicillins (Verified Allergy, Unknown, 04/13/15) apple (Unverified Allergy, Unknown, 03/13/17) FROM UNCODED ALLERGIES apricot (Unverified Allergy, Unknown, 03/13/17) FROM UNCODED ALLERGIES fluconazole (Verified Allergy, Unknown, 04/13/15) levofloxacin (Verified Allergy, Unknown, 04/13/15) nitrofurantoin (Verified Allergy, Unknown, 04/13/15) peach (Unverified Allergy, Unknown, 03/13/17) FROM UNCODED ALLERGIES strawberry (Verified Allergy, Unknown, 04/13/15) Uncoded Allergies: IM IV STEROIDS (Allergy, Unknown, 04/13/15) KIAW (Allergy, Unknown, 04/13/15) TOOTHPASTE (Allergy, Unknown, 04/13/15) Home Medications Ondansetron HCl 4 Mg Tab, 4 MG PO Q4H Prescribed by: AMILCAR CARROLL on 03/03/18 1224 Pantoprazole Sodium 40 Mg Tablet.dr, 40 MG PO DAILY, (Reported) Tizanidine HCl 2 Mg Tablet, 2 MG PO HS, (Reported) Patient Home Medication List Home Medication List Reviewed: Yes Review of Systems Constitutional: see HPI; No chills, No fever Musculoskeletal: see HPI, muscle pain, muscle stiffness (to shoulder blades and neck), neck pain Psychiatric/Neurological: See HPI, Headache All Other Systems Reviewed Negative Unless Noted: Yes Past Onzauvh-Pkvvxx-Drixro Hx Past Med/Social Hx: Reviewed Nursing Past Med/Soc Hx Patient Social History Alcohol Use: Rarely Uses Number of Drinks Today: AA Alcohol Beverage of Choice: Beer Recreational Drug Use: No Smoking Status: Former Smoker Type Used: Electronic/Vapor 2nd Hand Smoke Exposure: No Recent Foreign Travel: No Contact w/Someone Who Travel: No Recent Infectious Disease Expo: No Recent Hopitalizations: No Physical Abuse: No Sexual Abuse: No Mistreated: No Immunizations Up To Date Tetanus Booster (TDap): Unknown Seasonal Allergies Seasonal Allergies: Yes Past Medical History Surgeries: Yes (HILLARY PLACED AND REMOVED R FEMUR, several facial bx's) Section, Gallbladder, Orthopedic, Tubal Ligation Respiratory: No Cardiac: No Neurological: Yes Headaches /Migraines 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 Disorders: No Female 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 Disorders: Denies 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 Sexually Transmitted Disease: No HIV/AIDS: No Genitourinary: No Gastrointestinal: Yes (NAUSEA) Gastroesophageal Reflux, Irritable Bowel Musculoskeletal: Yes (pinched nerve in back, FX RT FEMUR, C5 FX) Arthritis, Back Injury, Chronic Back Pain, Fractures Endocrine: No HEENT: No Loss of Vision: Denies Cancer: No Psychosocial: Yes Anxiety Integumentary: No Blood Disorders: No Adverse Reaction/Blood Tranf: No (HAS HAD BLOOD WITH NO REACTION) Family Medical History Reviewed Nursing Family Hx Alcoholism 19 FATHER Diabetes mellitus 19 FATHER 19 MOTHER Drug abuse 19 FATHER Hypertension 19 FATHER 19 MOTHER Kidney disease 19 FATHER Physical Exam Vital Signs Vital Signs - First Documented 04/21/18 16:38 Temp 98.6 Pulse 98 Resp 18 B/P (MAP) 129/98 (108) Pulse Ox 99 O2 Delivery Room Air Capillary Refill : Less Than 3 Seconds Height, Weight, BMI Height: 5'7.00" Weight: 180lbs. 0.0oz. 81.828024zp; 25.1 BMI Method:Stated General Appearance: No Apparent Distress, WD/WN HEENT: PERRL/EOMI, TMs Normal, Normal ENT Inspection, Pharynx Normal Neck: Full Range of Motion (with mild pain.), Normal Inspection, Non Tender, Supple, Other (tender to shoulder blades) Cardiovascular: Regular Rate, Rhythm, No Edema, No Gallop, No JVD, No Murmur, Normal Peripheral Pulses Respiratory: Chest Non Tender, Lungs Clear, Normal Breath Sounds, No Accessory Muscle Use, No Respiratory Distress, Accessory Muscle Use Neurologic/Psychiatric: Alert, Oriented x3, Normal Mood/Affect Skin: Normal Color, Warm/Dry Progress/Results/Core Measures Results/Orders Lab Results Laboratory Tests Test 04/21/18 17:27 Range/Units White Blood Count 10.5 4.3-11.0 10^3/uL Red Blood Count 4.61 4.35-5.85 10^6/uL Hemoglobin 13.9 11.5-16.0 G/DL Hematocrit 41 35-52 % Mean Corpuscular Volume 90 80-99 FL Mean Corpuscular Hemoglobin 30 25-34 PG Mean Corpuscular Hemoglobin Concent 34 32-36 G/DL Red Cell Distribution Width 13.1 10.0-14.5 % Platelet Count 315 130-400 10^3/uL Mean Platelet Volume 10.7 H 7.4-10.4 FL Neutrophils (%) (Auto) 61 42-75 % Lymphocytes (%) (Auto) 29 12-44 % Monocytes (%) (Auto) 7 0-12 % Eosinophils (%) (Auto) 3 0-10 % Basophils (%) (Auto) 1 0-10 % Neutrophils # (Auto) 6.3 1.8-7.8 X 10^3 Lymphocytes # (Auto) 3.0 1.0-4.0 X 10^3 Monocytes # (Auto) 0.7 0.0-1.0 X 10^3 Eosinophils # (Auto) 0.4 H 0.0-0.3 10^3/uL Basophils # (Auto) 0.1 0.0-0.1 10^3/uL Sodium Level 138 135-145 MMOL/L Potassium Level 4.0 3.6-5.0 MMOL/L Chloride Level 106 98-107 MMOL/L Carbon Dioxide Level 22 21-32 MMOL/L Anion Gap 10 5-14 MMOL/L Blood Urea Nitrogen 15 7-18 MG/DL Creatinine 0.75 0.60-1.30 MG/DL Estimat Glomerular Filtration Rate > 60 BUN/Creatinine Ratio 20 Glucose Level 84 70-105 MG/DL Calcium Level 9.1 8.5-10.1 MG/DL Corrected Calcium 8.8 8.5-10.1 MG/DL Total Bilirubin 0.2 0.1-1.0 MG/DL Aspartate Amino Transf (AST/SGOT) 14 5-34 U/L Alanine Aminotransferase (ALT/SGPT) 11 0-55 U/L Alkaline Phosphatase 54 40-136 U/L Total Protein 7.4 6.4-8.2 GM/DL Albumin 4.4 3.2-4.5 GM/DL My Orders Orders - FAUZIA GROSS Cbc With Automated Diff (04/21/18 17:12) Comprehensive Metabolic Panel (04/21/18 17:12) Iv Heplock-Insert (Order) (04/21/18 17:12) Orphenadrine Injection (Norflex Injectio (04/21/18 17:15) Ketorolac Injection (Toradol Injection) (04/21/18 17:15) Medications Given in ED Current Medications Medications Dose Ordered Sig/Aga Route Start Time Stop Time Status Last Admin Dose Admin Ketorolac Tromethamine 30 mg ONCE ONCE IVP 04/21/18 17:15 04/21/18 17:16 DC 04/21/18 17:31 30 MG Orphenadrine Citrate 60 mg ONCE ONCE IV 04/21/18 17:15 04/21/18 17:16 DC 04/21/18 17:32 60 MG Vital Signs/I&O 04/21/18 16:38 Temp 98.6 Pulse 98 Resp 18 B/P (MAP) 129/98 (108) Pulse Ox 99 O2 Delivery Room Air Blood Pressure Mean: 108 Progress Progress Note : Time: 18:06 Progress Note Patient pain has resolved at this time. I have informed her of normal laboratory findings. Given normal exam, laboratory findings, and improved symptoms meningitis is very low on list differential diagnosis. She agrees with plan of trying to reduce her stress at home, she agrees with plans for discharge , return precautions were given. Departure Impression Primary Impression: Tension headache Disposition: 01 HOME, SELF-CARE Condition: Stable/Unchanged Departure-Patient Inst. Decision time for Depature: 18:07 Referrals: FAHEEM WASHINGTON DO (PCP) Primary Care Physician Patient Instructions: Tension Headache (DC) Add. Discharge Instructions: Resuming your home medications as previously prescribed. Follow-up with her neurologist within 1 week for recheck. Follow-up with Dr. WASHINGTON within 1 week for a recheck. Return back to the emergency room for any worsening symptoms or concerns as needed. All discharge instructions reviewed with patient and/or family. Voiced understanding. FAUZIA GROSS Apr 21, 2018 17:16
[2018-04-21 17:36] LABS: BASOPHILS # (AUTO) 0.1 10^3/uL (0.0-0.1); BASOPHILS % (AUTO) 1 % (0-10); EOSINOPHILS # (AUTO) 0.4 10^3/uL (0.0-0.3); EOSINOPHILS % (AUTO) 3 % (0-10); HEMATOCRIT 41 % (35-52); HEMOGLOBIN 13.9 G/DL (11.5-16.0); LYMPHOCYTES % (AUTO) 29 % (12-44); MEAN CORPUSCULAR HEMOGLOBIN 30 PG (25-34); MEAN CORPUSCULAR HGB CONC 34 G/DL (32-36); MEAN CORPUSCULAR VOLUME 90 FL (80-99); MEAN PLATELET VOLUME 10.7 FL (7.4-10.4); MONOCYTES # (AUTO) 0.7 X 10^3 (0.0-1.0); MONOCYTES % (AUTO) 7 % (0-12); NEUTROPHILS # (AUTO) 6.3 X 10^3 (1.8-7.8); NEUTROPHILS % (AUTO) 61 % (42-75); PLATELET COUNT 315 10^3/uL (130-400); RED BLOOD COUNT 4.61 10^6/uL (4.35-5.85); RED CELL DISTRIBUTION WIDTH 13.1 % (10.0-14.5); WHITE BLOOD COUNT 10.5 10^3/uL (4.3-11.0)
[2018-04-21 17:52] LABS: ALANINE AMINOTRANSFERASE 11 U/L (0-55); ALBUMIN 4.4 GM/DL (3.2-4.5); ALKALINE PHOSPHATASE 54 U/L (40-136); BILIRUBIN,TOTAL 0.2 MG/DL (0.1-1.0); BUN/CREATININE RATIO 20; CALCIUM 9.1 MG/DL (8.5-10.1); CARBON DIOXIDE 22 MMOL/L (21-32); CHLORIDE 106 MMOL/L (98-107); CREATININE SERUM 0.75 MG/DL (0.60-1.30); GFR ESTIMATED > 60; GLUCOSE 84 MG/DL (70-105); SODIUM 138 MMOL/L (135-145); TOTAL PROTEIN 7.4 GM/DL (6.4-8.2)
[2018-04-21 18:31] VITALS: BP 118/81
== END 2018-04-21 18:31 | disposition home or self-care (01) ==
LOC: EDUNIT# 16:05 → ER 16:06
DX: G44.209 Tension-type headache, unspecified, not intractable (principal); K21.9 Gastro-esophageal reflux disease without esophagitis; F41.9 Anxiety disorder, unspecified; Z87.19 Personal history of other diseases of the digestive system; Z88.0 Allergy status to penicillin; Z88.8 Allergy status to other drugs, medicaments and biological substances; Z88.6 Allergy status to analgesic agent; Z88.1 Allergy status to other antibiotic agents; Z87.891 Personal history of nicotine dependence; Z98.890 Other specified postprocedural states; Z98.51 Tubal ligation status
CPT/HCPCS: 36415; 80053; 85025; 99281

== ENCOUNTER → 2018-04-23 | Outpatient (CLI) | payer MEDICAID ==
--- NOTE | 2018-04-23 11:51 | Diagnostic Imaging Report ---
CLINICAL INDICATION: Patient with nausea and vomiting and epigastric pain. COMPARISON: None. PROCEDURE: Solid Gastric emptying study After oral ingestion of 1.06 millicuries of technetium 99M sulfur colloid, mixed with scrambled egg, sequential imaging of the abdomen is performed. Computer analysis is performed and gastric emptying curves are calculated. FINDINGS: There is gastric emptying demonstrated with sequential imaging. The residual retained gastric activity: 1 hour: 13% (less than 30% equals rapid and greater than 90% equals delayed) 2 hours: 4% (greater than 60% represents abnormally delayed) 3 hours: 1% (greater than 30% represents abnormally delayed) 4 hours: 1% (greater than 10% represents abnormally delayed) IMPRESSION: Abnormal gastric emptying study with rapid gastric emptying. Dictated by: Dictated on workstation # [id number]
== END ==
LOC: CARD 06:41
PROVIDERS: ATTEND Surgery
DX: R11.2 Nausea with vomiting, unspecified (principal); R10.13 Epigastric pain
CPT/HCPCS: 78264

== ENCOUNTER 2018-05-10 16:15 | Outpatient (RCR) | payer MEDICAID ==
[2018-05-27] MEDS ORDERED: FLUT9.9S NS (09:56)
[2018-05-27] MEDS ORDERED: CETI1TAB61 PO (09:56)
[2018-05-27] MEDS ORDERED: TOPI50TA37 PO (09:56)
== END 2018-06-16 15:53 | disposition home or self-care (01) ==
PROVIDERS: ATTEND Family Medicine
DX: S16.1XXA Strain of muscle, fascia and tendon at neck level, initial encounter (principal); X58.XXXA Exposure to other specified factors, initial encounter; Y93.19 Activity, other involving water and watercraft

== ENCOUNTER 2018-05-26 19:33 | Emergency (ER) | payer MEDICAID ==
--- OUTSIDE RECORDS SUMMARY | 2018-05-26 20:03 | XMS REPORT | Clinical Summary ---
Author Author [facility] Organization [facility] Address Unknown Phone Unavailable Care Team Providers Care Development Assistant Name Role Phone Carson Jackman PCP Source Comments Some departments are not documenting in the electronic medical record. If you do not see the information that you expected, contact Release of Information in the Health Information Management department at [phone] for further assistance in locating additional records.[facility] Allergies Active Allergy Reactions Severity Noted [...]
--- OUTSIDE RECORDS SUMMARY | 2018-05-26 20:03 | XMS REPORT ---
Author Author ARTISJOHNY CAROL Gutierrez [facility] Address Unknown Care Team Providers Care Tree Planter Name Role Phone CAROL HERRERA Unavailable PROBLEMS Type Condition ICD9-CM Code [id number] Code Onset Dates Condition Status SNOMED Code Problem Other general counseling and advice for contraceptive management V25.09 Active 038385498 Problem Surveillance of previously prescribed implantable subdermal contraceptive V25.43 Active 329035506 ALLERGIES Substance Reaction Event Type Date Status Macrobid Unknown Drug Allergy Mar, Active Levaquin Unknown Drug Allergy Mar, Active Keflex Unknown Drug Allergy Mar, Active Fluoride Unknown Drug Allergy Mar, Active Diflucan Unknown Drug Allergy Mar, Active Penicillins Unknown Non Drug Allergy Mar, Active ENCOUNTERS Encounter Location Date Diagnosis [facility] [id number] [place] [phone] Mar, Dental examination Z01.[address] [id number] [id number] Oct, Dental examination Z01.20 [facility] [address] [address] Sep, Dental examination Z01.20 [facility] [id number] [place] [phone] May, [facility] [id number] [place] [phone] Feb, Seasonal allergic rhinitis due to pollen J30.1 [facility] [address] [place] [phone] November, Dental examination Z01.20 [facility] [address] [facility] [id number] [id number] Feb, Dental examination V72.2 [facility] [address] [facility] [id number] [place] [address] Oct, [facility] [address] [facility] [id number] [place] [address] Aug, [facility] [address] [facility] [id number] [place] [address] Aug, IMMUNIZATIONS No Known Immunizations SOCIAL HISTORY Never Assessed REASON FOR VISIT NIK PLAN OF CARE Activity Details Follow Up prn Reason:#15-VF restorative VITAL SIGNS Height 66 in 2018-03-30 Blood pressure systolic 122 mmHg 2018-03-30 Blood pressure diastolic 78 mmHg 2018-03-30 MEDICATIONS Medication Instructions Dosage Frequency Start Date End Date Duration Status Sudafed 30 MG Orally every 6 hrs 1 tablet as needed 6h Not-Taking Vitamin D Not-Taking Cetirizine HCl 10 mg Orally Once a day 1 tablet 24h Feb, Not -Taking Excedrin Migraine Active Fluticasone Propionate 50 MCG/ACT Nasally Once a day 1 spray in each nostril 24h Feb, Not-Taking Tizanidine HCl Active Topamax Not-Taking Excedrin PM Not-Taking RESULTS No Results PROCEDURES Procedure Date Ordered Result Body Site LTD ORAL EVALUATION - PROBLEM FOCUS Mar 30, 2018 INTRAORL-PERIAPICAL 1 FILM [id number] Mar 30, 2018 BITEWING - SINGLE FILM Mar 30, 2018 INTRAORL-PERIAPICAL EA ADD FILM Mar 30, 2018 INSTRUCTIONS MEDICATIONS ADMINISTERED No Known Medications MEDICAL [...]
[2018-05-27] MEDS ORDERED: TOPI50TA37 PO (09:56)
[2018-05-27] MEDS ORDERED: FLUT9.9S NS (09:56)
[2018-05-27] MEDS ORDERED: CETI1TAB61 PO (09:56)
== END 2018-05-26 19:42 | disposition left against medical advice (07) ==
LOC: EDUNIT# 19:33 → ER 19:34
DX: S05.32XA Ocular laceration without prolapse or loss of intraocular tissue, left eye, initial encounter (principal); X58.XXXA Exposure to other specified factors, initial encounter

== ENCOUNTER 2018-05-27 09:35 | Emergency (ER) | payer MEDICAID ==
[~2018-05-27] VITALS: Ht 170.2 cm; Wt 83.5 kg
--- OUTSIDE RECORDS SUMMARY | 2018-05-27 09:41 | XMS REPORT | Clinical Summary ---
Author Author [facility] Organization [facility] Address Unknown Phone Unavailable Care Team Providers Care Mobile Phlebotomist Name Role Phone Carson Jackman PCP Source Comments Some departments are not documenting in the electronic medical record. If you do not see the information that you expected, contact Release of Information in the Health Information Management department at [phone] for further assistance in locating additional records.[facility] Allergies Active Allergy Reactions Severity Noted [...]
[2018-05-27] MEDS ORDERED: CETI1TAB61 PO (09:56)
[2018-05-27] MEDS ORDERED: TOPI50TA37 PO (09:56)
[2018-05-27] MEDS ORDERED: FLUT9.9S NS (09:56)
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
[2018-05-27] MEDS ORDERED: TETANUS,DIPTH,PERTUSS P/F (BOOSTRIX) 0.5 ML VIAL IM STA (10:12)
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
[2018-05-27 12:08] VITALS: BP 133/94
== END 2018-05-27 12:09 | disposition home or self-care (01) ==
LOC: EDUNIT# 09:35 → ER 09:37
DX: S00.83XA Contusion of other part of head, initial encounter (principal); G43.909 Migraine, unspecified, not intractable, without status migrainosus; K21.9 Gastro-esophageal reflux disease without esophagitis; F41.9 Anxiety disorder, unspecified; Z23 Encounter for immunization; Z87.19 Personal history of other diseases of the digestive system; Z98.890 Other specified postprocedural states; Z88.1 Allergy status to other antibiotic agents; Z88.0 Allergy status to penicillin; Z88.8 Allergy status to other drugs, medicaments and biological substances; Z79.51 Long term (current) use of inhaled steroids; Z98.51 Tubal ligation status; W01.10XA Fall on same level from slipping, tripping and stumbling with subsequent striking against unspecified object, initial encounter
CPT/HCPCS: 70486; 90715

== ENCOUNTER → 2020-07-30 | Outpatient (CLI) | payer MEDICAID ==
[~2020-07-30] MED LIST changes: +CETI1TAB61 PO; +FLUT9.9S NS; -INDO50CA11; +INDO50CA82; +NABU-88; -NABU500T; -PANT40TA3 PO; +PANT40TA52 PO; +RANI-613 PO; -RANI150T46 PO; -TIZA2TAB3; -TIZA2TAB3 PO; +TIZA2TAB7; +TIZA2TAB7 PO; +TOPI50TA37 PO; -TRAM50TA2 PO; +TRM50T PO
== END ==
LOC: LABNPT 07:04
DX: Z53.9 Procedure and treatment not carried out, unspecified reason (principal)

== ENCOUNTER 2021-06-06 09:02 | Outpatient (CLI) | payer MEDICAID ==
[~2021-06-06] VITALS: Ht 170.2 cm; Wt 97.2 kg
[2021-06-06 08:57] VITALS: BP 117/65
[~2021-06-06 09:02] MED LIST changes: +DOXY-311 PO; -DOXY100C42 PO; -NABU-88; +NABU500T8; +TIZA-169; +TIZA-169 PO; -TIZA2TAB7; -TIZA2TAB7 PO
[2021-06-06] MEDS ORDERED: diphenhydrAMINE 50 MG/ML INJ (BENADRYL) IV PRN (09:30)
[2021-06-06] MEDS ORDERED: CASIRIVIMAB/IMDEVIMAB 1,200 MG in NS (IVPB) 250 ML IV ONE (09:30)
[2021-06-06] MEDS ORDERED: ONDANSETRON 4 MG/2 ML (SDV) Z0FRAN IV PRN (09:30)
[2021-06-06] MEDS ORDERED: ACETAMINOPHEN 500 MG TAB (TYLENOL) PO PRN (09:30)
[2021-06-06] MEDS ORDERED: EPINEPHrine INJECTION 1 MG/ML AMP IM PRN (09:30)
[2021-06-06 10:35] VITALS: BP 102/60
== END 2021-06-06 10:41 | disposition home or self-care (01) ==
LOC: INFUSION 09:02
PROVIDERS: ATTEND Nurse Practitioner Family
DX: U07.1 COVID-19 (principal)

== ENCOUNTER 2022-01-19 04:55 | Emergency (ER) | payer MEDICAID ==
[~2022-01-19 04:55] MED LIST changes: +CYCL10TA25 PO; -CYCL10TA9 PO; +OMEP20TA56 PO; -OMEP20TA7 PO; -PHEN15CA; +PHEN15CA6
[2022-01-19 05:08] VITALS: BP 131/110
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
[2022-01-19] MEDS ORDERED: KETOROLAC 60 MG/2 ML VIAL IM ONE (05:45)
--- NOTE | 2022-01-19 05:55 | Diagnostic Imaging Report ---
FOOT, LEFT, 3 VIEWS INDICATION: Foot pain COMPARISON: None available. TECHNIQUE: Three non-weightbearing views of foot were obtained. FINDINGS: No fracture or traumatic malalignment. No evidence of metatarsal stress fracture. No soft tissue swelling or gas. IMPRESSION: 1. No acute fracture or traumatic malalignment. Dictated by: Dictated on workstation # [id number]
== END 2022-01-19 06:30 | disposition home or self-care (01) ==
LOC: EDUNIT# 04:55 → ER 04:58
DX: S90.122A Contusion of left lesser toe(s) without damage to nail, initial encounter (principal); S40.022A Contusion of left upper arm, initial encounter; S80.212A Abrasion, left knee, initial encounter; S80.211A Abrasion, right knee, initial encounter; S90.512A Abrasion, left ankle, initial encounter; F17.290 Nicotine dependence, other tobacco product, uncomplicated; X08.8XXA Exposure to other specified smoke, fire and flames, initial encounter; Y92.009 Unspecified place in unspecified non-institutional (private) residence as the place of occurrence of the external cause
CPT/HCPCS: 73630; 82375; 99281

== ENCOUNTER 2022-02-09 22:01 | Emergency (ER) | payer MEDICAID ==
[2022-02-09 22:07] VITALS: BP 141/112
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
== END 2022-02-09 22:35 | disposition left against medical advice (07) ==
LOC: EDUNIT# 22:01 → ER 22:03
DX: M54.6 Pain in thoracic spine (principal); M54.2 Cervicalgia; R42 Dizziness and giddiness; Z28.310 Unvaccinated for COVID-19
CPT/HCPCS: 99281

== ENCOUNTER → 2022-07-10 | Outpatient (CLI) | payer MEDICAID ==
[~2022-07-10] MED LIST changes: +CATHETER FLUSH 10 ML SYR IVP PRN; -DOXY-311 PO; +DOXY-444 PO
[2022-07-10 08:00] VITALS: BP 125/82
--- NOTE | 2022-07-10 12:43 | Cardiology Stress Test Report ---
Stress Test Report Date of Procedure/Referring: Date of Procedure: Jul 10, 2022 PCP Arvin Vega DO Admitting Physician Admitting Physician: Attending Physician: Michelle [facility] Dnp Baseline Vital Signs Vital Signs Date Time Temp Pulse Resp B/P (MAP) Pulse Ox O2 Delivery O2 Flow Rate FiO2 07/10/22 08:00 89 125/82 (96) Summary: Patient receive a resting and stress dose of Myoview, images were acquired and reviewed in the short axis view, horizontal long axis view and vertical long axis view. TID: 1.08 SSS: 0 SDS: 0 EF: 60 1. No significant ischemia or infarction on SPECT images 2. Normal left ventricular size, ejection fraction 60% Copy Copies To 1: ARVIN VEGA BASHAR J MD Jul 10, 2022 12:43
== END ==
LOC: CARD 07:00
PROVIDERS: ATTEND Nurse Practitioner Family
DX: R07.89 Other chest pain (principal); R94.31 Abnormal electrocardiogram [ECG] [EKG]
CPT/HCPCS: 78452; 93017

== ENCOUNTER 2022-10-23 11:40 | Emergency (ER) | payer MEDICAID ==
[~2022-10-23] VITALS: Ht 170 cm; Wt 88.9 kg
[~2022-10-23 11:40] MED LIST changes: -CATHETER FLUSH 10 ML SYR IVP PRN
[2022-10-23 12:21] LABS: BILIRUBIN,URINE NEGATIVE (NEGATIVE); CLARITY,URINE CLEAR; COLOR,URINE YELLOW; GLUCOSE, URINE (UA) NEGATIVE (NEGATIVE); KETONES,URINE NEGATIVE (NEGATIVE); LEUKOCYTE ESTERASE ,URINE NEGATIVE (NEGATIVE); NITRITE,URINE NEGATIVE (NEGATIVE); PROTEIN,URINE NEGATIVE (NEGATIVE)
[2022-10-23 12:35] LABS: BACTERIA,URINE NEGATIVE /HPF; RBC,URINE 0-2 /HPF; SQUAMOUS EPITHELIAL CELL,UR 0-2 /HPF
--- NOTE | 2022-10-23 12:36 | ED GU-Female ---
General Chief Complaint: - 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 Stated Complaint: VAGINA ISSUES Nursing Triage Note: pt states she thinks she has a prolapsed uterus. pt is on her period and has been using a diva cup, about 30min went to empty it and noticed what she believes is a prolapsed uterus. pt has never had this before. pt was able to remove dive cup. denies pain but has "a lot of discomfort." Source: patient Exam Limitations: no limitations History of Present Illness Date Seen by Provider: Oct 23, 2022 Time Seen by Provider: 11:45 Initial Comments 32-year-old female with no pertinent past medical history coming in because she was concerned she has a prolapsed uterus. She is on her period, where the diva cup, and when to change it about 30 minutes prior to arrival, and she noticed that she thought she felt her cervix. This is never happened before. Does not have any significant pain with it, but it was uncomfortable feeling. Denies any dysuria, fever, vaginal discharge, or any other concerns. She is currently menstruating. Has had 2 babies via section in the past. Allergies and Home Medications Allergies Coded Allergies: Cephalosporins (Verified Allergy, Unknown, 05/03/16) Penicillins (Verified Allergy, Unknown, 04/13/15) apple (Unverified Allergy, Unknown, 03/13/17) FROM UNCODED ALLERGIES apricot (Unverified Allergy, Unknown, 03/13/17) FROM UNCODED ALLERGIES fluconazole (Verified Allergy, Unknown, 04/13/15) levofloxacin (Verified Allergy, Unknown, 04/13/15) nitrofurantoin (Verified Allergy, Unknown, 04/13/15) peach (Unverified Allergy, Unknown, 03/13/17) FROM UNCODED ALLERGIES strawberry (Verified Allergy, Unknown, 04/13/15) Uncoded Allergies: IM IV STEROIDS (Allergy, Unknown, 04/13/15) KIAW (Allergy, Unknown, 04/13/15) TOOTHPASTE (Allergy, Unknown, 04/13/15) Patient Home Medication List Home Medication List Reviewed: Yes Cetirizine HCl/Pseudoephedrine (Zyrtec-D Tablet) 1 Each Tab.er.12h, 1 EACH PO, (Reported) Entered as Reported by: JOCELIN GROSS on 05/27/18 0956 Fluticasone Propionate (Flonase Allergy Relief) 9.9 Ml [place].susp, 2 SPRAY NS DAILY, (Reported) Entered as Reported by: JOCELIN GROSS on 05/27/18 0956 Tizanidine HCl (Tizanidine HCl) 2 Mg Tablet, 2 MG PO HS, (Reported) Entered as Reported by: RONNA GAVIN on 03/01/18 1221 Topiramate (Topamax) 50 Mg Tablet, 50 MG PO, (Reported) Entered as Reported by: JOCELIN GROSS on 05/27/18 0956 Review of Systems Review of Systems Constitutional: No fever EENTM: no symptoms reported Respiratory: no symptoms reported Cardiovascular: no symptoms reported Gastrointestinal: no symptoms reported Genitourinary: see HPI Musculoskeletal: no symptoms reported Skin: no symptoms reported Psychiatric/Neurological: No Symptoms Reported Endocrine: No Symptoms Reported Past Rvzgjru-Qcqfcy-Xvpywk Hx Patient Social History Tobacco Use?: Yes Use of E-Cig and/or Vaping dev: Yes Substance use?: No Alcohol Use?: Yes Alcohol type: Beer Alcohol Frequency: Daily Pt feels they are or have been: No Immunizations Up To Date Tetanus Booster (TDap): Unknown Influenza Vaccine Up-to-Date: No; Not Current Seasonal Allergies Seasonal Allergies: Yes Past Medical History Surgeries: Yes (HILLARY PLACED AND REMOVED R FEMUR, several facial bx's) Section, Gallbladder, Orthopedic, Tubal Ligation Respiratory: No Cardiac: No Neurological: Yes Headaches /Migraines Last Menstrual Period: Oct 19, 2022 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 Disorders: No Female 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 Disorders: 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 Sexually Transmitted Disease: No HIV/AIDS: No Genitourinary: No Gastrointestinal: Yes (NAUSEA) Gastroesophageal Reflux, Irritable Bowel Musculoskeletal: Yes (pinched nerve in back, FX RT FEMUR, C5 FX) Arthritis, Back Injury, Chronic Back Pain, Fractures Endocrine: No HEENT: No Loss of Vision: Denies Cancer: No Psychosocial: Yes Anxiety Integumentary: No Blood Disorders: No Adverse Reaction/Blood Tranf: No (HAS HAD BLOOD WITH NO REACTION) Family Medical History Alcoholism 19 FATHER Diabetes mellitus 19 FATHER 19 MOTHER Drug abuse 19 FATHER Hypertension 19 FATHER 19 MOTHER Kidney disease 19 FATHER Physical Exam Vital Signs Vital Signs - First Documented 10/23/22 11:49 Temp 36.7 Pulse 84 Resp 18 B/P (MAP) 129/93 (105) Pulse Ox 100 O2 Delivery Room Air Capillary Refill : Less Than 3 Seconds Height, Weight, BMI Height: 5'7.00" Weight: 184lbs. 0.0oz. 83.260892dm; 30.00 BMI Method:Stated General Appearance: WD/WN, no apparent distress HEENT: PERRL/EOMI, normal ENT inspection, pharynx normal Neck: normal inspection Cardiovascular: no edema Respiratory: no respiratory distress Gastrointestinal: non tender, soft Genital/Rectal: other (Normal external genitalia, cervix with minimal amount of bleeding, bladder prolapses with Valsalva) Back: normal inspection Extremities: normal range of motion Neurologic/Psychiatric: alert Skin: normal color, warm/dry Progress/Results/Core Measures Suspected Sepsis SIRS Temperature: Pulse: 84 Respiratory Rate: 18 Blood Pressure 129 /93 Mean: 105 Results/Orders Lab Results Laboratory Tests Test 10/23/22 11:58 Range/Units Urine Color YELLOW Urine Clarity CLEAR Urine pH 6.0 5-9 Urine Specific [place] <=1.005 1.016-1.022 Urine Protein NEGATIVE NEGATIVE Urine Glucose (UA) NEGATIVE NEGATIVE Urine Ketones NEGATIVE NEGATIVE Urine Nitrite NEGATIVE NEGATIVE Urine Bilirubin NEGATIVE NEGATIVE Urine Urobilinogen 0.2 < = 1.0 MG/DL Urine Leukocyte Esterase NEGATIVE NEGATIVE Urine RBC (Auto) 3+ H NEGATIVE Urine RBC 0-2 /HPF Urine WBC NONE /HPF Urine Squamous Epithelial Cells 0-2 /HPF Urine Crystals NONE /LPF Urine Bacteria NEGATIVE /HPF Urine Casts NONE /LPF Urine Mucus NEGATIVE /LPF Urine Culture Indicated NO Urine Test NEGATIVE NEGATIVE My Orders Orders - ACACIA HUNT MD Hcg,Qualitative Urine (10/23/22 12:02) Ua Culture If Indicated (10/23/22 12:02) Vital Signs/I&O 10/23/22 11:49 Temp 36.7 Pulse 84 Resp 18 B/P (MAP) 129/93 (105) Pulse Ox 100 O2 Delivery Room Air Capillary Refill : Less Than 3 Seconds Blood Pressure Mean: 105 Progress Note : Progress Note 32-year-old female with above history coming in due to concerns for uterine prolapse. ABCs were intact and vitals were stable on presentation. Physical exam with a soft and nontender abdomen. On pelvic exam, her cervix is in normal position, but she does have some bladder prolapse, particularly with Valsalva. Otherwise goes back to normal position. Urinalysis without evidence of in fection and urine test negative. I discussed options for the patient, and that she needs to follow-up with a hide tanner. She was then discharged home in stable condition with strict return precautions Departure Impression Primary Impression: Cystocele Qualified Codes: N81.11 - Cystocele, midline Disposition: 01 HOME, SELF-CARE Condition: Stable Departure-Patient Inst. Decision time for Depature: 12:44 Referrals: ZEINAB VARGAS WILLIAM J DO (PCP/Family) Primary Care Physician Patient Instructions: Pelvic Organ Prolapse Add. Discharge Instructions: On exam it does appear like you are bladder has prolapsed which is called a cystocele. Please follow-up with a hide tanner of your choice. Typically the treatment is pelvic floor physical therapy, a vaginal pessary, and last case scenario they would do surgery. Work/School Note: School/Childcare Release, Date Seen in the Emergency Department: Oct 23, 2022 Time Dismissed from Emergency Department: 12:45 Return to School: Oct 24, 2022 Restrictions: No Restrictions Work Release Form Date Seen in the Emergency Department: Oct 23, 2022 Return to Work: Oct 24, 2022 Restrictions: No Restrictions ACACIA HUNT MD Oct 23, 2022 12:36
[2022-10-23 12:55] VITALS: BP 122/97
== END 2022-10-23 12:55 | disposition home or self-care (01) ==
LOC: EDUNIT# 11:40 → ER 11:43
DX: N81.10 Cystocele, unspecified (principal); F17.290 Nicotine dependence, other tobacco product, uncomplicated; Z28.310 Unvaccinated for COVID-19
CPT/HCPCS: 81000; 84703; 99282